=== PATIENT | male | born 1935 | race Caucasian/White ===

== ENCOUNTER 2017-05-12 09:59 | Inpatient (IN) | payer MEDICARE, BC ==
[2017-05-12] MEDS ORDERED: Furosemide 40 MG/4 ML VIAL IVPUSH ONE (11:10)
[2017-05-12] MEDS ORDERED: Albuterol/Ipratropium 3.0-0.5 MG/3 ML Neb Soln NEB PRN (11:16)
--- NOTE | 2017-05-12 12:16 | PCM.HP ---
H&P History of Present Illness - General Date of Service: 05/12/17 Admit Problem/Dx: Admission Diagnosis/Problem Admission Diagnosis/Problem Pneumonia Source of Information: Patient History Limitations: Reports: No Limitations - History of Present Illness Symptom Onset Date: 05/09/17 Duration of Symptoms: Reports: Day(s): Location: Reports: Chest Improves with: Reports: Rest Worsens with: Reports: Movement Associated Symptoms: Reports: Cough, Shortness of Breath - Related Data Allergies/Adverse Reactions: Allergies Allergy/AdvReac Type Severity Reaction Status Date / Time lisinopril Allergy Unknown Cough Verified 10/13/14 11:42 blueberry Allergy unknown Verified 10/13/14 11:42 gentamicin Allergy unknown Verified 10/13/14 11:42 rabeprazole sodium Allergy unknown Verified 10/13/14 11:42 [From Aciphex] raspberry Allergy unknown Verified 10/13/14 11:42 Sulfa (Sulfonamide Allergy Itching Verified 10/13/14 11:42 Antibiotics) Home Medications: Home Meds Aspirin [Carlene Chewable Aspirin] 81 mg PO BEDTIME 06/30/14 [History] Clopidogrel [Plavix] 75 mg PO DAILY 06/30/14 [History] Ibuprofen 400 mg PO BID 06/30/14 [History] Losartan Potassium [Cozaar] 50 mg PO BID 06/30/14 [History] Metoprolol Tartrate 50 mg PO BID 06/30/14 [History] metFORMIN [Glucophage] 500 mg PO DAILY 06/30/14 [History] traMADol [Ultram] 50 mg PO TID PRN 06/30/14 [History] Omeprazole 1 cap PO DAILY 10/12/14 [History] Albuterol Sulfate [Proair Respiclick] 2 puff INH Q6HR PRN 05/12/17 [History] Docusate Sodium [Colace] 100 mg PO BID 05/12/17 [History] Furosemide [Lasix] 20 mg PO DAILY 05/12/17 [History] Psyllium with Sucrose [Metamucil] 1 gm PO DAILY 05/12/17 [History] Rosuvastatin [Crestor] 5 mg PO [id number]@199905/12/17 [History] Past Medical History HEENT History: Reports: Impaired Vision (wears glasses) Cardiovascular History: Reports: CAD, Heart Failure, Hypertension, 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) Gastrointestinal History: Reports: Diverticulosis, GERD - Past Surgical History HEENT Surgical History: Reports: Cataract Surgery (bilat) Cardiovascular Surgical History: Reports: Carotid Stents, Pacer GI Surgical History: Reports: Cholecystectomy Other GI Surgeries/Procedures: recurrent abd pain Social & Family History - Tobacco Use Smoking Status *Q: Current Every Day Smoker Years of Tobacco use: 60 Second Hand Smoke Exposure: No - Alcohol Use Days Per Week of Alcohol Use: 0 (no previous DWI, etc.) Number of Drinks Per Day: 1 (usually one beer every 2 months) Total Drinks Per Week: 0 - Recreational Drug Use Recreational Drug Use: No Drug Use in Last 12 Months: Yes Recreational Drug Type: Reports: Other (see below) (chronic Ultram use) Recreational Drug Use Frequency: Daily - Living Situation & Occupation Living situation: Reports: Occupation: Retired H&P Review of Systems - Review of Systems: Review Of Systems: ROS reveals no pertinent complaints other than HPI. Exam - Exam Exam: See Below - Exam Quality Assessment: Supplemental Oxygen (applied at clinic for O2 sat 88 %) General: Alert, Oriented, Mild Distress (respirations audibly moist, a little wheezy and labored) HEENT: EOMI, Hearing Intact Neck: Supple, Trachea Midline Lungs: Crackles, Wheezing, Other (some increased work of breathing) Cardiovascular: Regular Rate (paced), Regular Rhythm GI/Abdominal Exam: Normal Bowel Sounds, Soft, Non-Tender, No Distention (Male) Exam: Deferred Rectal (Males) Exam: Deferred Back Exam: Normal Inspection Extremities: No Pedal Edema Skin: Warm, Dry, Intact Neuro Extensive - Mental Status: Alert, Oriented x3, Normal Mood/Affect, Normal Cognition, Memory Intact Psychiatric: Alert, Normal Affect, Normal Mood *Q Meaningful Use (ADM) - VTE *Q VTE Criteria *Q: - Stroke *Q Stroke Criteria *Q: - AMI *Q AMI Criteria *Q: - Problem List (1) Pneumonia SNOMED Code(s): 541028741 ICD Code: J18.9 - PNEUMONIA, UNSPECIFIED ORGANISM Status: Acute Priority : High Current Visit: Yes Qualifiers: Pneumonia type: due to unspecified organism Laterality: bilateral (2) Heart failure SNOMED Code(s): 10831234 ICD Code: I50.9 - HEART FAILURE, UNSPECIFIED Status: Chronic Priority: High Current Visit: Yes Qualifiers: Heart failure type: unspecified Heart failure chronicity: acute on chronic Qualified Code(s): I50.9 - Heart failure, unspecified (3) Hypoxia SNOMED Code(s): 901341664 ICD Code: R09.02 - HYPOXEMIA Status: Acute Priority: High Current Visit : Yes Problem List Initiated/Reviewed/Updated: Yes Orders Last 24hrs: Active Orders 24 hr Category Date Time Status Patient Status [ADT] Routine ADT 05/12/17 11:06 Active Accu Check [Blood Glucose Check, Bedside] [RC] TIDMEALS Care 05/12/17 11:38 Active Ambulate [RC] PER UNIT ROUTINE Care 05/12/17 11:08 Active Antiembolic Devices [RC] PER UNIT ROUTINE Care 05/12/17 11:09 Active Height and Weight [RC] DAILY Care 05/12/17 11:06 Active Intake and Output [RC] QSHIFT Care 05/12/17 11:08 Active May Shower [RC] ASDIRECTED Care 05/12/17 11:06 Active Oxygen Therapy [RC] PRN Care 05/12/17 11:06 Active Pulse Oximetry [RC] PRN Care 05/12/17 11:08 Active RT Aerosol Therapy [RC] ASDIRECTED Care 05/12/17 11:17 Active RT Aerosol Therapy [RC] ASDIRECTED Care 05/12/17 11:17 Active Up ad Soumya [RC] ASDIRECTED Care 05/12/17 11:06 Active VTE/DVT Education [RC] PER UNIT ROUTINE Care 05/12/17 11:06 Active Vital Signs [RC] Q4H Care 05/12/17 11:06 Active PT Evaluation and Treatment [CONS] Routine Cons 05/12/17 11:06 Active [place] [employer] Diet [DIET] Diet 05/12/17 Lunch Active Chest 2V [CR] Routine Exams 05/12/17 09:55 Taken Chest 2V [CR] Routine Exams 05/15/17 07:00 Ordered C-REACTIVE PROTEIN [CHEM] AM Lab 05/13/17 05:11 Ordered C-REACTIVE PROTEIN [CHEM] AM Lab 05/14/17 05:11 Ordered C-REACTIVE PROTEIN [CHEM] AM Lab 05/15/17 05:11 Ordered CBC WITH AUTO DIFF [HEME] AM Lab 05/13/17 05:11 Ordered CBC WITH AUTO DIFF [HEME] AM Lab 05/14/17 05:11 Ordered CBC WITH AUTO DIFF [HEME] AM Lab 05/15/17 05:11 Ordered COMPREHENSIVE METABOLIC PN,CMP [CHEM] AM Lab 05/13/17 05:11 Ordered COMPREHENSIVE METABOLIC PN,CMP [CHEM] AM Lab 05/14/17 05:11 Ordered COMPREHENSIVE METABOLIC PN,CMP [CHEM] AM Lab 05/15/17 05:11 Ordered CULTURE BLOOD [BC] Stat Lab 05/12/17 11:18 Received CULTURE BLOOD [BC] Stat Lab 05/12/17 11:18 Received PRO B-TYPE NATRIUR PEPT,BNPPRO [CHEM] DAILY Lab 05/13/17 05:11 Ordered PRO B-TYPE NATRIUR PEPT,BNPPRO [CHEM] DAILY Lab 05/14/17 05:11 Ordered PRO B-TYPE NATRIUR PEPT,BNPPRO [CHEM] DAILY Lab 05/15/17 05:11 Ordered Albuterol/Ipratropium [DuoNeb 3.0-0.5 MG/3 ML] Med 05/12/17 11:16 Active 3 ml NEB Q4HRRT PRN Albuterol/Ipratropium [DuoNeb 3.0-0.5 MG/3 ML] Med 05/12/17 12:00 Active 3 ml NEB QIDRT Aspirin Med 05/12/17 20:00 Active 81 mg PO BEDTIME Azithromycin [Zithromax] 500 mg Med 05/12/17 12:00 Active Sodium Chloride 0.9% [Normal Saline] 250 ml IV Q24H Clopidogrel [Plavix] Med 05/13/17 08:00 Active 75 mg PO DAILY Docusate Sodium [Colace] Med 05/12/17 18:00 Active 100 mg PO BID Furosemide [Lasix] Med 05/13/17 08:00 Active 40 mg IVPUSH DAILY Losartan [Cozaar] Med 05/12/17 18:00 Active 50 mg PO BID Metoprolol Tartrate [Lopressor] Med 05/12/17 18:00 Active 50 mg PO BID Omeprazole Med 05/13/17 08:00 Active 20 mg PO DAILY Psyllium Husk/Aspartame [Metamucil Sugar Free] Med 05/13/17 08:00 Active 1 pkt PO DAILY Rosuvastatin [Crestor] Med 05/12/17 20:00 Active 5 mg PO MoWeFr@2000 Sodium Chloride 0.9% [Saline Flush] Med 05/12/17 11:06 Active 10 ml FLUSH ASDIRECTED PRN cefTAZidime [Fortaz] Med 05/12/17 12:00 Active 1 gm IVPUSH Q8H metFORMIN [Glucophage] Med 05/13/17 08:00 Active 500 mg PO DAILY Antiembolic Hose [OM.PC] Per Unit Routine Oth 05/12/17 11:08 Ordered Blood Culture x2 Reflex Set [OM.PC] Stat Oth 05/12/17 11:06 Ordered Saline Lock Insert [OM.PC] Routine Oth 05/12/17 11:06 Ordered Resuscitation Status Routine Resus Stat 05/12/17 11:06 Ordered Medication Orders Albuterol/Ipratropium (Duoneb 3.0-0.5 Mg/3 Ml) 3 ml NEB Q4HRRT PRN PRN Reason: Dyspnea Albuterol/Ipratropium (Duoneb 3.0-0.5 Mg/3 Ml) 3 ml NEB QIDRT [facility] Aspirin (Aspirin) 81 mg PO BEDTIME [facility] Ceftazidime (Fortaz) 1 gm IVPUSH Q8H [facility] Clopidogrel Bisulfate (Plavix) 75 mg PO DAILY [facility] Docusate Sodium (Colace) 100 mg PO BID [facility] Furosemide (Lasix) 40 mg IVPUSH DAILY [facility] Azithromycin 500 mg/ Sodium (Chloride) 250 mls @ 250 mls/hr IV Q24H [facility] Losartan Potassium (Cozaar) 50 mg PO BID [facility] Metformin HCl (Glucophage) 500 mg PO DAILY [facility] Metoprolol Tartrate (Lopressor) 50 mg PO BID [facility] Omeprazole (Omeprazole) 20 mg PO DAILY [facility] Psyllium Husk (Metamucil Sugar Free) 1 pkt PO DAILY [facility] Rosuvastatin Calcium (Crestor) 5 mg PO [id number]@2000 [facility] Sodium Chloride (Saline Flush) 10 ml FLUSH ASDIRECTED PRN PRN Reason: Keep Vein Open Assessment/Plan Comment:: 05-12-17 Ailyn Joseph PA-C Patient admitted to status under the medical management of Dr. Kelly, who was consulted within 30 minutes of admit. Oxygen saturation came up to 94-95% with O2 at 2 L/m per NC. He had prior to O2 appeared acutely dyspneic with ambulation to the clinic room, and even with extended conversation. He is given a one-time dose of IV Lasix 40 mg on admit, then 40 mg QAM. Duo- neb treatment ordered routinely plus prn. IV Fortaz and Zithromax ordered. This 82 year-old gentleman with co-morbidities will require at least 96 hours of IP care.
[2017-05-12] MEDS: Albuterol/Ipratropium 3.0-0.5 MG/3 ML Neb Soln NEB SCH ×3 (12:39→21:04)
[2017-05-12] MEDS: cefTAZidime 1 GM Vial IVPUSH SCH ×2 (12:39→21:05)
[2017-05-12] MEDS: Azithromycin 500 MG in Sodium Chloride 0.9% 250 ML IV SCH (12:40)
[2017-05-12] MEDS: Sodium Chloride 0.9% 10 ML Syringe FLUSH PRN ×4 (12:43→21:10)
[2017-05-12] MEDS: Metoprolol Tartrate 50 MG Tab PO SCH (17:38)
[2017-05-12] MEDS: Docusate Sodium 100 MG Cap PO SCH (17:38)
[2017-05-12] MEDS: Losartan 50 MG Tab PO SCH (17:38)
[2017-05-12] MEDS ORDERED: Ibuprofen 200 MG Tab PO PRN (20:00)
[2017-05-12] MEDS: Psyllium Husk Powder Sugar Free 5.85 GM Packet PO SCH (21:04)
[2017-05-12] MEDS: Rosuvastatin 10 MG Tab PO SCH (21:05)
[2017-05-12] MEDS: Aspirin 81 MG Tab.Chew PO SCH (21:05)
[2017-05-12] MEDS ORDERED: traMADol 50 MG Tab PO ONE (21:58)
[2017-05-13] MEDS: Sodium Chloride 0.9% 10 ML Syringe FLUSH PRN ×5 (05:11→20:35)
[2017-05-13] MEDS: cefTAZidime 1 GM Vial IVPUSH SCH ×3 (05:11→20:10)
[2017-05-13] MEDS: Furosemide 40 MG/4 ML VIAL IVPUSH SCH (07:22)
[2017-05-13] MEDS: Albuterol/Ipratropium 3.0-0.5 MG/3 ML Neb Soln NEB SCH ×4 (07:22→20:10)
[2017-05-13] MEDS: Psyllium Husk Powder Sugar Free 5.85 GM Packet PO SCH ×2 (07:22→20:09)
[2017-05-13] MEDS: Metoprolol Tartrate 50 MG Tab PO SCH ×2 (07:22→17:56)
[2017-05-13] MEDS: Docusate Sodium 100 MG Cap PO SCH ×2 (07:23→17:55)
[2017-05-13] MEDS: Losartan 50 MG Tab PO SCH ×2 (07:23→17:55)
[2017-05-13] MEDS: Clopidogrel 75 MG Tab PO SCH (07:23)
[2017-05-13] MEDS: metFORMIN 500 MG Tab PO SCH (07:23)
[2017-05-13 07:55] LABS: CHLORIDE,CL 98 mmol/L (98-107); SODIUM,NA 137 mmol/L (136-145)
[2017-05-13] MEDS ORDERED: Psyllium Husk Powder Sugar Free 5.85 GM Packet PO SCH (08:00)
[2017-05-13] MEDS ORDERED: Omeprazole 20 MG Cap.CR PO SCH (08:00)
[2017-05-13] MEDS: Azithromycin 500 MG in Sodium Chloride 0.9% 250 ML IV SCH (11:46)
[2017-05-13] MEDS ORDERED: Albuterol 0.083% 2.5 MG/3 ML Neb Soln NEB PRN (19:57)
--- NOTE | 2017-05-13 20:07 | PCM.PN ---
- General Info Date of Service: 05/13/17 Admission Dx/Problem (Free Text): Admission Diagnosis/Problem Admission Diagnosis/Problem Pneumonia Functional Status: Reports: Pain Controlled - Review of Systems General: Reports: Weakness HEENT: Reports: No Symptoms Pulmonary: Reports: Shortness of Breath, Cough, Wheezing Cardiovascular: Reports: No Symptoms Gastrointestinal: Reports: No Symptoms Genitourinary: Reports: No Symptoms Musculoskeletal: Reports: No Symptoms Skin: Reports: No Symptoms Neurological: Reports: Weakness Psychiatric: Reports: No Symptoms - Patient Data Vitals - Most Recent: Last Vital Signs Temp 97.7 F 05/13/17 18:29 Pulse 87 05/13/17 18:29 Resp 24 H 05/13/17 18:29 BP 136/80 05/13/17 18:29 Pulse Ox 93 L 05/13/17 18:29 Weight - Most Recent: 228 lb 11.2 oz I&O - Last 24 Hours: Intake & Output 05/13/17 05/13/17 05/13/17 06:59 14:59 22:59 Intake Total 400 1290 600 Output Total 200 250 Balance 400 1090 350 Lab Results Last 24 Hours: Laboratory Results - last 24 hr 05/13/17 05/13/17 05/13/17 Range/Units 07:19 07:24 07:24 WBC 7.8 (4.0-10.2) K/uL RBC 4.83 (4.33-5.41) M/uL Hgb 15.5 (13.1-16.8) g/dL Hct 47.1 (39.0-49.0) % MCV 97.5 (84.0-98.0) fL MCH 32.1 (28.2-33.3) pg MCHC 32.9 (31.7-36.0) g/dL RDW 13.6 (11.2-14.1) % Plt Count 138 L (150-350) K/uL Neut % (Auto) 66.2 (45.0-80.0) % Lymph % (Auto) 18.7 (10.0-50.0) % [place] % (Auto) 11.9 (2.0-14.0) % Eos % (Auto) 2.8 (0.0-5.0) % Baso % (Auto) 0.4 (0.0-2.0) % Neut # (Auto) 5.14 (1.40-7.00) K/uL Lymph # (Auto) 1.45 (0.50-3.50) K/uL [place] # (Auto) 0.92 (0.00-1.00) K/uL Eos # (Auto) 0.22 (0.00-0.50) K/uL Baso # (Auto) 0.03 (0.00-0.20) K/uL Sodium 137 (136-145) mmol/L Potassium 3.9 (3.5-5.1) mmol/L Chloride 98 (98-107) mmol/L Carbon Dioxide 32.8 H (21.0-32.0) mmol/L BUN 22 H (7-18) mg/dL Creatinine 0.98 (0.51-1.17) mg/dL Est Cr Clr Drug Dosing 54.53 mL/min Estimated GFR (MDRD) > 60 mL/min Glucose 117 H (74-106) mg/dL POC Glucose 111 H (65-110) mg/dl Calcium 8.8 (8.5-10.1) mg/dL Total Bilirubin 0.9 (0.2-1.0) mg/dL AST 21 (15-37) U/L ALT 18 (12-78) U/L Alkaline Phosphatase 104 (46-116) IU/L C-Reactive Protein 2.1 H (<=0.9) mg/dL NT-Pro-B Natriuret Pep 1429 H (0-125) pg/mL Total Protein 7.7 (6.4-8.2) g/dL Albumin 3.7 (3.4-5.0) g/dL 05/13/17 05/13/17 Range/Units 11:41 17:17 WBC (4.0-10.2) K/uL RBC (4.33-5.41) M/uL Hgb (13.1-16.8) g/dL Hct (39.0-49.0) % MCV (84.0-98.0) fL MCH (28.2-33.3) pg MCHC (31.7-36.0) g/dL RDW (11.2-14.1) % Plt Count (150-350) K/uL Neut % (Auto) (45.0-80.0) % Lymph % (Auto) (10.0-50.0) % [place] % (Auto) (2.0-14.0) % Eos % (Auto) (0.0-5.0) % Baso % (Auto) (0.0-2.0) % Neut # (Auto) (1.40-7.00) K/uL Lymph # (Auto) (0.50-3.50) K/uL [place] # (Auto) (0.00-1.00) K/uL Eos # (Auto) (0.00-0.50) K/uL Baso # (Auto) (0.00-0.20) K/uL Sodium (136-145) mmol/L Potassium (3.5-5.1) mmol/L Chloride (98-107) mmol/L Carbon Dioxide (21.0-32.0) mmol/L BUN (7-18) mg/dL Creatinine (0.51-1.17) mg/dL Est Cr Clr Drug Dosing mL/min Estimated GFR (MDRD) mL/min Glucose (74-106) mg/dL POC Glucose 98 109 (65-110) mg/dl Calcium (8.5-10.1) mg/dL Total Bilirubin (0.2-1.0) mg/dL AST (15-37) U/L ALT (12-78) U/L Alkaline Phosphatase (46-116) IU/L C-Reactive Protein (<=0.9) mg/dL NT-Pro-B Natriuret Pep (0-125) pg/mL Total Protein (6.4-8.2) g/dL Albumin (3.4-5.0) g/dL [place] Results Last 24 Hours: Microbiology 05/12/17 11:18 Aerobic Blood Culture - Preliminary Blood - Venous - Lab Draw NO GROWTH AFTER 1 DAY Anaerobic Blood Culture - Preliminary NO GROWTH AFTER 1 DAY 05/12/17 11:18 Aerobic Blood Culture - Preliminary Blood - Venous NO GROWTH AFTER 1 DAY Anaerobic Blood Culture - Preliminary NO GROWTH AFTER 1 DAY Med Orders - Current: Current Medications Albuterol (Proventil Neb Soln) 2.5 mg NEB Q2H PRN PRN Reason: Wheezing Albuterol/Ipratropium (Duoneb 3.0-0.5 Mg/3 Ml) 3 ml NEB Q4HRRT PRN PRN Reason: Dyspnea Last Admin: 05/12/17 23:28 Dose: 3 ml Albuterol/Ipratropium (Duoneb 3.0-0.5 Mg/3 Ml) 3 ml NEB QIDRT [facility] Last Admin: 05/13/17 15:06 Dose: 3 ml Aspirin (Aspirin) 81 mg PO BEDTIME [facility] Last Admin: 05/12/17 21:05 Dose: 81 mg Ceftazidime (Fortaz) 1 gm IVPUSH Q8H [facility] Last Admin: 05/13/17 11:46 Dose: 1 gm Clopidogrel Bisulfate (Plavix) 75 mg PO DAILY [facility] Last Admin: 05/13/17 07:23 Dose: 75 mg Docusate Sodium (Colace) 100 mg PO BID [facility] Last Admin: 05/13/17 17:55 Dose: 100 mg Furosemide (Lasix) 40 mg IVPUSH DAILY [facility] Last Admin: 05/13/17 07:22 Dose: 40 mg Azithromycin 500 mg/ Sodium (Chloride) 250 mls @ 250 mls/hr IV Q24H [facility] Last Admin: 05/13/17 11:46 Dose: 250 mls/hr Aminophylline 500 mg/ Sodium (Chloride) 120 mls @ 200 mls/hr IV ONETIME ONE Stop: 05/13/17 20:25 Aminophylline 500 mg/ Sodium (Chloride) 520 mls @ 33 mls/hr IV ASDIRECTED [facility] Ibuprofen (Motrin) 400 mg PO BID@08,20 PRN PRN Reason: Pain Last Admin: 05/12/17 21:04 Dose: 400 mg Losartan Potassium (Cozaar) 50 mg PO BID [facility] Last Admin: 05/13/17 17:55 Dose: 50 mg Metformin HCl (Glucophage) 500 mg PO DAILY [facility] Last Admin: 05/13/17 07:23 Dose: 500 mg Methylprednisolone Sodium Succinate (Solu-Medrol) 40 mg IVPUSH Q12HR [facility] Metoprolol Tartrate (Lopressor) 50 mg PO BID [facility] Last Admin: 05/13/17 17:56 Dose: 50 mg Omeprazole (Omeprazole) 20 mg PO BEDTIME [facility] Psyllium Husk (Metamucil Sugar Free) 1 pkt PO BID@08,20 [facility] Last Admin: 05/13/17 07:22 Dose: 1 pkt Rosuvastatin Calcium (Crestor) 5 mg PO MoWeFr@1999 [facility] Last Admin: 05/12/17 21:05 Dose: 5 mg Sodium Chloride (Saline Flush) 10 ml FLUSH ASDIRECTED PRN PRN Reason: Keep Vein Open Last Admin: 05/13/17 13:29 Dose: 10 ml Sodium Chloride (Saline Flush) 10 ml FLUSH Q12HR [facility] Discontinued Medications Furosemide (Lasix) 40 mg IVPUSH NOW ONE Stop: 05/12/17 11:11 Last Admin: 05/12/17 12:39 Dose: 40 mg Omeprazole (Omeprazole) 20 mg PO DAILY [facility] Last Admin: 05/13/17 07:23 Dose: 20 mg Psyllium Husk (Metamucil Sugar Free) 1 pkt PO DAILY [facility] Tramadol HCl (Ultram) 50 mg PO ONETIME ONE Stop: 05/12/17 21:59 Last Admin: 05/12/17 22:20 Dose: 50 mg - Exam Quality Assessment: Supplemental Oxygen General: Alert, Cooperative, Mild Distress HEENT: Mucous Membr. Moist/Wet [place] Neck: Trachea Midline, No JVD Lungs: Normal Respiratory Effort, Decreased Breath Sounds, Rhonchi, Wheezing Cardiovascular: Regular Rate, Regular Rhythm GI/Abdominal Exam: Soft, Non-Tender, No Distention (Male) Exam: Deferred Back Exam: Normal Inspection Extremities: Normal Inspection, Non-Tender, No Pedal Edema Skin: Warm, Dry, Intact Neurological: No New Focal Deficit Psy/Mental Status: Alert, Normal Affect, Normal Mood - Problem List & Annotations (1) Hypoxia SNOMED Code(s): 998867829 Code(s): R09.02 - HYPOXEMIA Status: Acute Priority: High Current Visit : Yes (2) Pneumonia SNOMED Code(s): 872391696 Code(s): J18.9 - PNEUMONIA, UNSPECIFIED ORGANISM Status: Acute Priority: High Current Visit: Yes Qualifiers: Pneumonia type: due to unspecified organism Laterality: bilateral (3) Heart failure SNOMED Code(s): 72811570 Code(s): I50.9 - HEART FAILURE, UNSPECIFIED Status: Chronic Priority: High Current Visit: Yes Qualifiers: Heart failure type: unspecified Heart failure chronicity: acute on chronic Qualified Code(s): I50.9 - Heart failure, unspecified (4) Diabetes mellitus SNOMED Code(s): 46079723 Code(s): E11.9 - TYPE 2 DIABETES MELLITUS WITHOUT COMPLICATIONS Status: Acute Priority: Medium Current Visit: No Annotation/Comment:: Blood sugars under good control by patient history with compliance with diet encouraged secondary to his current obesity (5) Heart disease SNOMED Code(s): 81118271 Code(s): I51.9 - HEART DISEASE, UNSPECIFIED Status: Acute Priority: Medium Current Visit: No Annotation/Comment:: No chest pain or anginal complaints. Continue to observe closely for his regular provider. He is not a candidate for an MRI secondary to his current pacemaker. (6) Hypertension SNOMED Code(s): 72144906 Code(s): I10 - ESSENTIAL (PRIMARY) HYPERTENSION Status: Acute Priority: Medium Current Visit: No Annotation/Comment:: Blood pressure is under good control during this evaluation (7) Osteoarthritis SNOMED Code(s): 006101960 Code(s): M19.90 - UNSPECIFIED OSTEOARTHRITIS, UNSPECIFIED SITE Status: Acute Priority: High Current Visit: No Annotation/Comment:: Chronic low back pain with mild exacerbation today. Treatment and followup as per discharge instructions. Patient was cautioned to use Ultram with discretion especially with new Flexeril therapy. No acute injury with patient apparently having completed physical therapy in this facility about one month ago. (8) Peptic reflux disease SNOMED Code(s): 04720592 Code(s): K21.9 - GASTRO-ESOPHAGEAL REFLUX DISEASE WITHOUT ESOPHAGITIS Status: Acute Priority: Medium Current Visit: No Annotation/Comment:: Previously treated H. pylori infection as above. No current symptoms with regular ibuprofen usage. Once again no true abdominal pain today, however note that patient has not yet had a screening colonoscopy, which was recommended to be discussed with his regular provider today (9) Tobacco use SNOMED Code(s): 614409722 Code(s): Z72.0 - TOBACCO USE Status: Acute Priority: Medium Current Visit: No Annotation/Comment:: Tobacco cessation strongly encouraged with information provided at discharge - Problem List Review Problem List Initiated/Reviewed/Updated: Yes - My Orders Last 24 Hours: My Active Orders 05/13/17 19:50 Aminophylline 500 mg Sodium Chloride 0.9% [Normal Saline] 100 ml IV ONETIME 05/13/17 19:57 RT Aerosol Therapy [RC] ASDIRECTED Albuterol [Proventil Neb Soln] 2.5 mg NEB Q2H PRN 05/13/17 20:00 Sodium Chloride 0.9% [Saline Flush] 10 ml FLUSH Q12HR methylPREDNISolone Sod Succ [Solu-MEDROL] 40 mg IVPUSH Q12HR 05/13/17 21:00 Aminophylline 500 mg Sodium Chloride 0.9% [Normal Saline] 500 ml IV ASDIRECTED 05/14/17 05:11 THEOPHYLLINE [CHEM] Routine - Plan Plan:: 05-12-17 Ailyn Joseph PA-C Patient admitted to IP status under the medical management of Dr. Kelly, who was consulted within 30 minutes of admit. Oxygen saturation came up to 94-95% with O2 at 2 L/m per NC. He had prior to O2 appeared acutely dyspneic with ambulation to the clinic room, and even with extended conversation. He is given a one-time dose of IV Lasix 40 mg on admit, then 40 mg QAM. Duo- neb treatment ordered routinely plus prn. IV Fortaz and Zithromax ordered. This 82 year-old gentleman with co-morbidities will require at least 96 hours of IP care. 05/13/17 Leticia Rodriguez MD Still short of breath. Still wheezing. Cough is tight and nonproductive.
[2017-05-13] MEDS: Aspirin 81 MG Tab.Chew PO SCH (20:09)
[2017-05-13] MEDS: Sodium Chloride 0.9% 10 ML Syringe FLUSH SCH (20:15)
[2017-05-13] MEDS: methylPREDNISolone Sodium Succinate 40 MG/1 ML SDV IVPUSH SCH (20:33)
[2017-05-13] MEDS: Aminophylline 500 MG in Sodium Chloride 0.9% 500 ML IV SCH (21:18)
[2017-05-14] MEDS: Docusate Sodium 100 MG Cap PO SCH ×2 (07:40→17:48)
[2017-05-14] MEDS: metFORMIN 500 MG Tab PO SCH (07:41)
[2017-05-14] MEDS: Metoprolol Tartrate 50 MG Tab PO SCH ×2 (07:41→17:49)
[2017-05-14] MEDS: Clopidogrel 75 MG Tab PO SCH (07:41)
[2017-05-14] MEDS: Losartan 50 MG Tab PO SCH ×2 (07:41→17:48)
[2017-05-14] MEDS: Sodium Chloride 0.9% 10 ML Syringe FLUSH SCH ×2 (07:42→19:56)
[2017-05-14] MEDS: methylPREDNISolone Sodium Succinate 40 MG/1 ML SDV IVPUSH SCH ×2 (07:42→19:56)
[2017-05-14] MEDS: Psyllium Husk Powder Sugar Free 5.85 GM Packet PO SCH ×2 (07:42→19:54)
[2017-05-14] MEDS: cefTAZidime 1 GM Vial IVPUSH SCH ×2 (07:44→19:56)
[2017-05-14] MEDS: Furosemide 40 MG/4 ML VIAL IVPUSH SCH (07:45)
[2017-05-14] MEDS: Albuterol/Ipratropium 3.0-0.5 MG/3 ML Neb Soln NEB SCH ×4 (07:46→19:57)
[2017-05-14] MEDS: Sodium Chloride 0.9% 10 ML Syringe FLUSH PRN (07:49)
[2017-05-14 08:14] LABS: CHLORIDE,CL 101 mmol/L (98-107); SODIUM,NA 141 mmol/L (136-145)
[2017-05-14] MEDS: Azithromycin 500 MG in Sodium Chloride 0.9% 250 ML IV SCH (11:14)
[2017-05-14] MEDS: Aminophylline 500 MG in Sodium Chloride 0.9% 500 ML IV SCH (14:40)
[2017-05-14] MEDS: Omeprazole 20 MG Cap.CR PO SCH (19:54)
[2017-05-14] MEDS: Rosuvastatin 10 MG Tab PO SCH (19:54)
[2017-05-14] MEDS: Aspirin 81 MG Tab.Chew PO SCH (19:54)
--- NOTE | 2017-05-14 21:37 | PCM.PN ---
- General Info Date of Service: 05/14/17 Admission Dx/Problem (Free Text): Admission Diagnosis/Problem Admission Diagnosis/Problem Pneumonia Functional Status: Reports: Tolerating Diet, Ambulating - Review of Systems General: Reports: No Symptoms HEENT: Reports: No Symptoms Pulmonary: Reports: Shortness of Breath (improving), Cough Cardiovascular: Reports: No Symptoms Gastrointestinal: Reports: No Symptoms Genitourinary: Reports: No Symptoms Musculoskeletal: Reports: No Symptoms Skin: Reports: No Symptoms Neurological: Reports: No Symptoms Psychiatric: Reports: No Symptoms - Patient Data Vitals - Most Recent: Last Vital Signs Temp 97.5 F 05/14/17 15:50 Pulse 66 05/14/17 17:49 Resp 23 H 05/14/17 15:50 BP 115/54 L 05/14/17 17:49 Pulse Ox 94 L 05/14/17 15:50 Weight - Most Recent: 229 lb 3.2 oz I&O - Last 24 Hours: Intake & Output 05/14/17 05/14/17 05/14/17 06:59 14:59 22:59 Intake Total 850 1376 Output Total 400 1175 250 Balance -400 -325 1126 Lab Results Last 24 Hours: Laboratory Results - last 24 hr 05/14/17 05/14/17 05/14/17 Range/Units 07:18 07:18 11:16 WBC 7.9 (4.0-10.2) K/uL RBC 4.80 (4.33-5.41) M/uL Hgb 15.3 (13.1-16.8) g/dL Hct 46.2 (39.0-49.0) % MCV 96.3 (84.0-98.0) fL MCH 31.9 (28.2-33.3) pg MCHC 33.1 (31.7-36.0) g/dL RDW 13.1 (11.2-14.1) % Plt Count 142 L (150-350) K/uL Neut % (Auto) 81.5 H (45.0-80.0) % Lymph % (Auto) 14.2 (10.0-50.0) % [place] % (Auto) 4.2 (2.0-14.0) % Eos % (Auto) 0.0 (0.0-5.0) % Baso % (Auto) 0.1 (0.0-2.0) % Neut # (Auto) 6.46 (1.40-7.00) K/uL Lymph # (Auto) 1.13 (0.50-3.50) K/uL [place] # (Auto) 0.33 (0.00-1.00) K/uL Eos # (Auto) 0.00 (0.00-0.50) K/uL Baso # (Auto) 0.01 (0.00-0.20) K/uL Sodium 141 (136-145) mmol/L Potassium 4.5 (3.5-5.1) mmol/L Chloride 101 (98-107) mmol/L Carbon Dioxide 33.4 H (21.0-32.0) mmol/L BUN 24 H (7-18) mg/dL Creatinine 0.93 (0.51-1.17) mg/dL Est Cr Clr Drug Dosing 57.46 mL/min Estimated GFR (MDRD) > 60 mL/min Glucose 141 H (74-106) mg/dL POC Glucose 142 H (65-110) mg/dl Calcium 9.0 (8.5-10.1) mg/dL Total Bilirubin 0.6 (0.2-1.0) mg/dL AST 21 (15-37) U/L ALT 19 (12-78) U/L Alkaline Phosphatase 98 (46-116) IU/L C-Reactive Protein 2.0 H (<=0.9) mg/dL NT-Pro-B Natriuret Pep 1393 H (0-125) pg/mL Total Protein 7.4 (6.4-8.2) g/dL Albumin 3.3 L (3.4-5.0) g/dL Theophylline 12 (10-20) ug/dL 05/14/17 Range/Units 16:20 WBC (4.0-10.2) K/uL RBC (4.33-5.41) M/uL Hgb (13.1-16.8) g/dL Hct (39.0-49.0) % MCV (84.0-98.0) fL MCH (28.2-33.3) pg MCHC (31.7-36.0) g/dL RDW (11.2-14.1) % Plt Count (150-350) K/uL Neut % (Auto) (45.0-80.0) % Lymph % (Auto) (10.0-50.0) % [place] % (Auto) (2.0-14.0) % Eos % (Auto) (0.0-5.0) % Baso % (Auto) (0.0-2.0) % Neut # (Auto) (1.40-7.00) K/uL Lymph # (Auto) (0.50-3.50) K/uL [place] # (Auto) (0.00-1.00) K/uL Eos # (Auto) (0.00-0.50) K/uL Baso # (Auto) (0.00-0.20) K/uL Sodium (136-145) mmol/L Potassium (3.5-5.1) mmol/L Chloride (98-107) mmol/L Carbon Dioxide (21.0-32.0) mmol/L BUN (7-18) mg/dL Creatinine (0.51-1.17) mg/dL Est Cr Clr Drug Dosing mL/min Estimated GFR (MDRD) mL/min Glucose (74-106) mg/dL POC Glucose 144 H (65-110) mg/dl Calcium (8.5-10.1) mg/dL Total Bilirubin (0.2-1.0) mg/dL AST (15-37) U/L ALT (12-78) U/L Alkaline Phosphatase (46-116) IU/L C-Reactive Protein (<=0.9) mg/dL NT-Pro-B Natriuret Pep (0-125) pg/mL Total Protein (6.4-8.2) g/dL Albumin (3.4-5.0) g/dL Theophylline (10-20) ug/dL [facility] Results Last 24 Hours: Microbiology 05/12/17 11:18 Aerobic Blood Culture - Preliminary Blood - Venous - Lab Draw NO GROWTH AFTER 2 DAYS Anaerobic Blood Culture - Preliminary NO GROWTH AFTER 2 DAYS 05/12/17 11:18 Aerobic Blood Culture - Preliminary Blood - Venous NO GROWTH AFTER 2 DAYS Anaerobic Blood Culture - Preliminary NO GROWTH AFTER 2 DAYS Med Orders - Current: Current Medications Albuterol (Proventil Neb Soln) 2.5 mg NEB Q2H PRN PRN Reason: Wheezing Last Admin: 05/14/17 18:07 Dose: 2.5 mg Albuterol/Ipratropium (Duoneb 3.0-0.5 Mg/3 Ml) 3 ml NEB Q4HRRT PRN PRN Reason: Dyspnea Last Admin: 05/12/17 23:28 Dose: 3 ml Albuterol/Ipratropium (Duoneb 3.0-0.5 Mg/3 Ml) 3 ml NEB QIDRT [facility] Last Admin: 05/14/17 19:57 Dose: 3 ml Aspirin (Aspirin) 81 mg PO BEDTIME [facility] Last Admin: 05/14/17 19:54 Dose: 81 mg Azithromycin (Zithromax) 500 mg PO DAILY [facility] Ceftazidime (Fortaz) 1 gm IVPUSH Q12HR [facility] Last Admin: 05/14/17 19:56 Dose: 1 gm Clopidogrel Bisulfate (Plavix) 75 mg PO DAILY [facility] Last Admin: 05/14/17 07:41 Dose: 75 mg Docusate Sodium (Colace) 100 mg PO BID [facility] Last Admin: 05/14/17 17:48 Dose: 100 mg Furosemide (Lasix) 40 mg IVPUSH DAILY [facility] Last Admin: 05/14/17 07:45 Dose: 40 mg Aminophylline 500 mg/ Sodium (Chloride) 520 mls @ 33 mls/hr IV ASDIRECTED [facility] Last Admin: 05/14/17 14:40 Dose: 33 mls/hr Ibuprofen (Motrin) 400 mg PO BID@08,20 PRN PRN Reason: Pain Last Admin: 05/12/17 21:04 Dose: 400 mg Losartan Potassium (Cozaar) 50 mg PO BID [facility] Last Admin: 05/14/17 17:48 Dose: 50 mg Metformin HCl (Glucophage) 500 mg PO DAILY [facility] Last Admin: 05/14/17 07:41 Dose: 500 mg Methylprednisolone Sodium Succinate (Solu-Medrol) 40 mg IVPUSH Q12HR [facility] Last Admin: 05/14/17 19:56 Dose: 40 mg Metoprolol Tartrate (Lopressor) 50 mg PO BID [facility] Last Admin: 05/14/17 17:49 Dose: 50 mg Omeprazole (Omeprazole) 20 mg PO BEDTIME [facility] Last Admin: 05/14/17 19:54 Dose: 20 mg Psyllium Husk (Metamucil Sugar Free) 1 pkt PO BID@08,20 [facility] Last Admin: 05/14/17 19:54 Dose: 1 pkt Rosuvastatin Calcium (Crestor) 5 mg PO [email or web address] [facility] Last Admin: 05/14/17 19:54 Dose: 5 mg Sodium Chloride (Saline Flush) 10 ml FLUSH ASDIRECTED PRN PRN Reason: Keep Vein Open Last Admin: 05/14/17 07:49 Dose: 10 ml Sodium Chloride (Saline Flush) 10 ml FLUSH Q12HR [facility] Last Admin: 05/14/17 19:56 Dose: 10 ml Discontinued Medications Ceftazidime (Fortaz) 1 gm IVPUSH Q8H [facility] Last Admin: 05/13/17 20:10 Dose: 1 gm Furosemide (Lasix) 40 mg IVPUSH NOW ONE Stop: 05/12/17 11:11 Last Admin: 05/12/17 12:39 Dose: 40 mg Azithromycin 500 mg/ Sodium (Chloride) 250 mls @ 250 mls/hr IV Q24H [facility] Last Admin: 05/14/17 11:14 Dose: 250 mls/hr Aminophylline 500 mg/ Sodium (Chloride) 120 mls @ 200 mls/hr IV ONETIME ONE Stop: 05/13/17 20:25 Last Admin: 05/13/17 20:32 Dose: 200 mls/hr Omeprazole (Omeprazole) 20 mg PO DAILY [facility] Last Admin: 05/13/17 07:23 Dose: 20 mg Psyllium Husk (Metamucil Sugar Free) 1 pkt PO DAILY [facility] Tramadol HCl (Ultram) 50 mg PO ONETIME ONE Stop: 05/12/17 21:59 Last Admin: 05/12/17 22:20 Dose: 50 mg - Exam Quality Assessment: Supplemental Oxygen General: Alert, Cooperative, No Acute Distress HEENT: Mucous Membr. Moist/[place] Neck: Trachea Midline, No JVD Lungs: Normal Respiratory Effort, Decreased Breath Sounds, Rhonchi, Wheezing Cardiovascular: Regular Rate, Regular Rhythm GI/Abdominal Exam: Soft, Non-Tender (Male) Exam: Deferred Back Exam: Normal Inspection Extremities: Normal Inspection, Non-Tender, No Pedal Edema Skin: Warm, Dry, Intact Neurological: No New Focal Deficit Psy/Mental Status: Alert, Normal Affect, Normal Mood - Problem List & Annotations (1) Hypoxia SNOMED Code(s): 101600064 Code(s): R09.02 - HYPOXEMIA Status: Acute Priority: High Current Visit : Yes (2) Pneumonia SNOMED Code(s): 319407226 Code(s): J18.9 - PNEUMONIA, UNSPECIFIED ORGANISM Status: Acute Priority: High Current Visit: Yes Qualifiers: Pneumonia type: due to unspecified organism Laterality: bilateral (3) Heart failure SNOMED Code(s): 12890432 Code(s): I50.9 - HEART FAILURE, UNSPECIFIED Status: Chronic Priority: High Current Visit: Yes Qualifiers: Heart failure type: unspecified Heart failure chronicity: acute on chronic Qualified Code(s): I50.9 - Heart failure, unspecified (4) Diabetes mellitus SNOMED Code(s): 97920821 Code(s): E11.9 - TYPE 2 DIABETES MELLITUS WITHOUT COMPLICATIONS Status: Acute Priority: Medium Current Visit: No Annotation/Comment:: Blood sugars under good control by patient history with compliance with diet encouraged secondary to his current obesity (5) Heart disease SNOMED Code(s): 60376612 Code(s): I51.9 - HEART DISEASE, UNSPECIFIED Status: Acute Priority: Medium Current Visit: No Annotation/Comment:: No chest pain or anginal complaints. Continue to observe closely for his regular provider. He is not a candidate for an MRI secondary to his current pacemaker. (6) Hypertension SNOMED Code(s): 27594652 Code(s): I10 - ESSENTIAL (PRIMARY) HYPERTENSION Status: Acute Priority: Medium Current Visit: No Annotation/Comment:: Blood pressure is under good control during this evaluation (7) Osteoarthritis SNOMED Code(s): 158702653 Code(s): M19.90 - UNSPECIFIED OSTEOARTHRITIS, UNSPECIFIED SITE Status: Acute Priority: High Current Visit: No Annotation/Comment:: Chronic low back pain with mild exacerbation today. Treatment and followup as per discharge instructions. Patient was cautioned to use Ultram with discretion especially with new Flexeril therapy. No acute injury with patient apparently having completed physical therapy in this facility about one month ago. (8) Peptic reflux disease SNOMED Code(s): 64504079 Code(s): K21.9 - GASTRO-ESOPHAGEAL REFLUX DISEASE WITHOUT ESOPHAGITIS Status: Acute Priority: Medium Current Visit: No Annotation/Comment:: Previously treated H. pylori infection as above. No current symptoms with regular ibuprofen usage. Once again no true abdominal pain today, however note that patient has not yet had a screening colonoscopy, which was recommended to be discussed with his regular provider today (9) Tobacco use SNOMED Code(s): 410731107 Code(s): Z72.0 - TOBACCO USE Status: Acute Priority: Medium Current Visit: No Annotation/Comment:: Tobacco cessation strongly encouraged with information provided at discharge - Problem List Review Problem List Initiated/Reviewed/Updated: Yes - My Orders Last 24 Hours: My Active Orders 05/13/17 21:00 Aminophylline 500 mg Sodium Chloride 0.9% [Normal Saline] 500 ml IV ASDIRECTED 05/14/17 08:00 cefTAZidime [Fortaz] 1 gm IVPUSH Q12HR 05/15/17 05:11 BLOOD GAS VENOUS [BG] Routine 05/15/17 08:00 Azithromycin [Zithromax] 500 mg PO DAILY - Plan Plan:: 05-12-17 Ailyn Joseph PA-C Patient admitted to IP status under the medical management of Dr. Kelly, who was consulted within 30 minutes of admit. Oxygen saturation came up to 94-95% with O2 at 2 L/m per NC. He had prior to O2 appeared acutely dyspneic with ambulation to the clinic room, and even with extended conversation. He is given a one-time dose of IV Lasix 40 mg on admit, then 40 mg QAM. Duo- neb treatment ordered routinely plus prn. IV Fortaz and Zithromax ordered. This 82 year-old gentleman with co-morbidities will require at least 96 hours of IP care. 05/13/17 Leticia Rodriguez MD Still short of breath. Still wheezing. Cough is tight and nonproductive. 05/14/17 Leticia Rodriguez MD Starting to feel better. Less short of breath. Still cough. Still some wheezing but improved.
[2017-05-15 07:02] LABS: O2 DELIVERY DEVICE NASAL CANNULA
[2017-05-15 07:33] LABS: CHLORIDE,CL 101 mmol/L (98-107); SODIUM,NA 140 mmol/L (136-145)
[2017-05-15] MEDS: methylPREDNISolone Sodium Succinate 40 MG/1 ML SDV IVPUSH SCH ×2 (08:02→19:19)
[2017-05-15] MEDS: Aminophylline 500 MG in Sodium Chloride 0.9% 500 ML IV SCH (08:02)
[2017-05-15 08:16] LABS: O2 SATURATION VENOUS 82 %; PCO2 VENOUS 62 mmHG (41-51); PH,VENOUS 7.31 (7.31-7.41); PO2 VENOUS 52 mmHG
[2017-05-15 08:17] LABS: BASE EXCESS VENOUS 5 mmol/L ((-2)-3); BICARBONATE,VENOUS 31 mmol/L (23-28)
[2017-05-15] MEDS: Albuterol/Ipratropium 3.0-0.5 MG/3 ML Neb Soln NEB SCH ×4 (08:17→19:17)
[2017-05-15] MEDS: Sodium Chloride 0.9% 10 ML Syringe FLUSH SCH ×2 (08:17→19:19)
[2017-05-15] MEDS: Furosemide 40 MG/4 ML VIAL IVPUSH SCH (08:19)
[2017-05-15] MEDS: cefTAZidime 1 GM Vial IVPUSH SCH ×2 (08:19→19:16)
[2017-05-15] MEDS: Losartan 50 MG Tab PO SCH ×2 (08:19→19:17)
[2017-05-15] MEDS: Docusate Sodium 100 MG Cap PO SCH ×2 (08:19→19:18)
[2017-05-15] MEDS: Metoprolol Tartrate 50 MG Tab PO SCH ×2 (08:19→19:16)
[2017-05-15] MEDS: Psyllium Husk Powder Sugar Free 5.85 GM Packet PO SCH ×2 (08:19→19:18)
[2017-05-15] MEDS: Azithromycin 250 MG Tab PO SCH (08:23)
[2017-05-15] MEDS: metFORMIN 500 MG Tab PO SCH (08:23)
[2017-05-15] MEDS: Clopidogrel 75 MG Tab PO SCH (08:24)
[2017-05-15] MEDS: Omeprazole 20 MG Cap.CR PO SCH (19:17)
[2017-05-15] MEDS: Aspirin 81 MG Tab.Chew PO SCH (19:19)
--- NOTE | 2017-05-15 23:02 | PCM.PN ---
- General Info Date of Service: 05/15/17 Admission Dx/Problem (Free Text): Admission Diagnosis/Problem Admission Diagnosis/Problem Pneumonia Functional Status: Reports: Tolerating Diet, Ambulating - Review of Systems General: Reports: No Symptoms HEENT: Reports: No Symptoms Pulmonary: Reports: Shortness of Breath, Cough, Wheezing Cardiovascular: Reports: No Symptoms Gastrointestinal: Reports: No Symptoms Genitourinary: Reports: No Symptoms Musculoskeletal: Reports: No Symptoms Skin: Reports: No Symptoms Neurological: Reports: No Symptoms Psychiatric: Reports: No Symptoms - Patient Data Vitals - Most Recent: Last Vital Signs Temp 97.8 F 05/15/17 20:00 Pulse 61 05/15/17 20:00 Resp 20 05/15/17 20:00 BP 154/80 H 05/15/17 20:00 Pulse Ox 95 05/15/17 20:00 Weight - Most Recent: 228 lb 12.8 oz I&O - Last 24 Hours: Intake & Output 05/15/17 05/15/17 05/15/17 06:59 14:59 22:59 Intake Total 100 480 390 Output Total 200 1300 100 Balance -100 -820 290 Lab Results Last 24 Hours: Laboratory Results - last 24 hr 05/15/17 05/15/17 05/15/17 Range/Units 06:40 06:40 06:40 WBC 13.5 H (4.0-10.2) K/uL RBC 4.91 (4.33-5.41) M/uL Hgb 16.0 (13.1-16.8) g/dL Hct 47.2 (39.0-49.0) % MCV 96.1 (84.0-98.0) fL MCH 32.6 (28.2-33.3) pg MCHC 33.9 (31.7-36.0) g/dL RDW 13.1 (11.2-14.1) % Plt Count 169 (150-350) K/uL Neut % (Auto) 83.5 H (45.0-80.0) % Lymph % (Auto) 11.6 (10.0-50.0) % [place] % (Auto) 4.7 (2.0-14.0) % Eos % (Auto) 0.1 (0.0-5.0) % Baso % (Auto) 0.1 (0.0-2.0) % Neut # (Auto) 11.28 H (1.40-7.00) K/uL Lymph # (Auto) 1.56 (0.50-3.50) K/uL [place] # (Auto) 0.63 (0.00-1.00) K/uL Eos # (Auto) 0.01 (0.00-0.50) K/uL Baso # (Auto) 0.02 (0.00-0.20) K/uL VBG pH 7.31 (7.31-7.41) VBG pCO2 62 H (41-51) mmHG VBG pO2 52 mmHG VBG HCO3 31 H (23-28) mmol/L VBG Total CO2 33 mmol/L VBG O2 Saturation 82 % VBG Base Excess 5 H ((-2)-3) mmol/L O2 Delivery Device Nasal cannula Sodium 140 (136-145) mmol/L Potassium 4.1 (3.5-5.1) mmol/L Chloride 101 (98-107) mmol/L Carbon Dioxide 31.8 (21.0-32.0) mmol/L BUN 35 H (7-18) mg/dL Creatinine 1.08 (0.51-1.17) mg/dL Est Cr Clr Drug Dosing 49.48 mL/min Estimated GFR (MDRD) > 60 mL/min Glucose 138 H (74-106) mg/dL POC Glucose (65-110) mg/dl Calcium 9.4 (8.5-10.1) mg/dL Total Bilirubin 0.6 (0.2-1.0) mg/dL AST 27 (15-37) U/L ALT 21 (12-78) U/L Alkaline Phosphatase 99 (46-116) IU/L C-Reactive Protein 1.0 H (<=0.9) mg/dL NT-Pro-B Natriuret Pep 1752 H (0-125) pg/mL Total Protein 7.6 (6.4-8.2) g/dL Albumin 3.5 (3.4-5.0) g/dL Theophylline 14 (10-20) ug/dL 05/15/17 05/15/17 Range/Units 07:33 11:01 WBC (4.0-10.2) K/uL RBC (4.33-5.41) M/uL Hgb (13.1-16.8) g/dL Hct (39.0-49.0) % MCV (84.0-98.0) fL MCH (28.2-33.3) pg MCHC (31.7-36.0) g/dL RDW (11.2-14.1) % Plt Count (150-350) K/uL Neut % (Auto) (45.0-80.0) % Lymph % (Auto) (10.0-50.0) % [place] % (Auto) (2.0-14.0) % Eos % (Auto) (0.0-5.0) % Baso % (Auto) (0.0-2.0) % Neut # (Auto) (1.40-7.00) K/uL Lymph # (Auto) (0.50-3.50) K/uL [place] # (Auto) (0.00-1.00) K/uL Eos # (Auto) (0.00-0.50) K/uL Baso # (Auto) (0.00-0.20) K/uL VBG pH (7.31-7.41) VBG pCO2 (41-51) mmHG VBG pO2 mmHG VBG HCO3 (23-28) mmol/L VBG Total CO2 mmol/L VBG O2 Saturation % VBG Base Excess ((-2)-3) mmol/L O2 Delivery Device Sodium (136-145) mmol/L Potassium (3.5-5.1) mmol/L Chloride (98-107) mmol/L Carbon Dioxide (21.0-32.0) mmol/L BUN (7-18) mg/dL Creatinine (0.51-1.17) mg/dL Est Cr Clr Drug Dosing mL/min Estimated GFR (MDRD) mL/min Glucose (74-106) mg/dL POC Glucose 122 H 174 H (65-110) mg/dl Calcium (8.5-10.1) mg/dL Total Bilirubin (0.2-1.0) mg/dL AST (15-37) U/L ALT (12-78) U/L Alkaline Phosphatase (46-116) IU/L C-Reactive Protein (<=0.9) mg/dL NT-Pro-B Natriuret Pep (0-125) pg/mL Total Protein (6.4-8.2) g/dL Albumin (3.4-5.0) g/dL Theophylline (10-20) ug/dL [place] Results Last 24 Hours: Microbiology 05/12/17 11:18 Aerobic Blood Culture - Preliminary Blood - Venous - Lab Draw NO GROWTH AFTER 3 DAYS Anaerobic Blood Culture - Preliminary NO GROWTH AFTER 3 DAYS 05/12/17 11:18 Aerobic Blood Culture - Preliminary Blood - Venous NO GROWTH AFTER 3 DAYS Anaerobic Blood Culture - Preliminary NO GROWTH AFTER 3 DAYS 05/12/17 07:24 Mycoplasma Serology - Final Blood Med Orders - Current: Current Medications Albuterol (Proventil Neb Soln) 2.5 mg NEB Q2H PRN PRN Reason: Wheezing Last Admin: 05/14/17 18:07 Dose: 2.5 mg Albuterol/Ipratropium (Duoneb 3.0-0.5 Mg/3 Ml) 3 ml NEB Q4HRRT PRN PRN Reason: Dyspnea Last Admin: 05/12/17 23:28 Dose: 3 ml Albuterol/Ipratropium (Duoneb 3.0-0.5 Mg/3 Ml) 3 ml NEB QIDRT [facility] Last Admin: 05/15/17 19:17 Dose: 3 ml Aspirin (Aspirin) 81 mg PO BEDTIME [facility] Last Admin: 05/15/17 19:19 Dose: 81 mg Azithromycin (Zithromax) 500 mg PO DAILY [facility] Last Admin: 05/15/17 08:23 Dose: 500 mg Ceftazidime (Fortaz) 1 gm IVPUSH Q12HR [facility] Last Admin: 05/15/17 19:16 Dose: 1 gm Clopidogrel Bisulfate (Plavix) 75 mg PO DAILY [facility] Last Admin: 05/15/17 08:24 Dose: 75 mg Docusate Sodium (Colace) 100 mg PO BID [facility] Last Admin: 05/15/17 19:18 Dose: 100 mg Furosemide (Lasix) 40 mg IVPUSH DAILY [facility] Last Admin: 05/15/17 08:19 Dose: 40 mg Aminophylline 500 mg/ Sodium (Chloride) 520 mls @ 33 mls/hr IV ASDIRECTED [facility] Stop: 05/15/17 23:00 Last Admin: 05/15/17 08:02 Dose: 33 mls/hr Ibuprofen (Motrin) 400 mg PO BID@08,20 PRN PRN Reason: Pain Last Admin: 05/12/17 21:04 Dose: 400 mg Losartan Potassium (Cozaar) 50 mg PO BID [facility] Last Admin: 05/15/17 19:17 Dose: 50 mg Metformin HCl (Glucophage) 500 mg PO DAILY [facility] Last Admin: 05/15/17 08:23 Dose: 500 mg Methylprednisolone Sodium Succinate (Solu-Medrol) 40 mg IVPUSH Q12HR [facility] Last Admin: 05/15/17 19:19 Dose: 40 mg Metoprolol Tartrate (Lopressor) 50 mg PO BID [facility] Last Admin: 05/15/17 19:16 Dose: 50 mg Omeprazole (Omeprazole) 20 mg PO BEDTIME [facility] Last Admin: 05/15/17 19:17 Dose: 20 mg Psyllium Husk (Metamucil Sugar Free) 1 pkt PO BID@08,20 [facility] Last Admin: 05/15/17 19:18 Dose: 1 pkt Rosuvastatin Calcium (Crestor) 5 mg PO [email or web address] [facility] Last Admin: 05/14/17 19:54 Dose: 5 mg Sodium Chloride (Saline Flush) 10 ml FLUSH ASDIRECTED PRN PRN Reason: Keep Vein Open Last Admin: 05/14/17 07:49 Dose: 10 ml Sodium Chloride (Saline Flush) 10 ml FLUSH Q12HR [facility] Last Admin: 05/15/17 19:19 Dose: 10 ml Theophylline (Theophylline Anhydrous) 300 mg PO Q12HR [facility] Discontinued Medications Ceftazidime (Fortaz) 1 gm IVPUSH Q8H [facility] Last Admin: 05/13/17 20:10 Dose: 1 gm Furosemide (Lasix) 40 mg IVPUSH NOW ONE Stop: 05/12/17 11:11 Last Admin: 05/12/17 12:39 Dose: 40 mg Azithromycin 500 mg/ Sodium (Chloride) 250 mls @ 250 mls/hr IV Q24H [facility] Last Admin: 05/14/17 11:14 Dose: 250 mls/hr Aminophylline 500 mg/ Sodium (Chloride) 120 mls @ 200 mls/hr IV ONETIME ONE Stop: 05/13/17 20:25 Last Admin: 05/13/17 20:32 Dose: 200 mls/hr Omeprazole (Omeprazole) 20 mg PO DAILY [facility] Last Admin: 05/13/17 07:23 Dose: 20 mg Psyllium Husk (Metamucil Sugar Free) 1 pkt PO DAILY [facility] Tramadol HCl (Ultram) 50 mg PO ONETIME ONE Stop: 05/12/17 21:59 Last Admin: 05/12/17 22:20 Dose: 50 mg - Exam General: Alert, Cooperative HEENT: Mucous Membr. Moist/[place] Neck: Trachea Midline, No JVD Lungs: Normal Respiratory Effort, Decreased Breath Sounds, Rhonchi, Wheezing Cardiovascular: Regular Rate, Regular Rhythm, Other (pacemaker) GI/Abdominal Exam: Soft, Non-Tender, No Distention (Male) Exam: Deferred Back Exam: Normal Inspection Extremities: Normal Inspection, Non-Tender, No Pedal Edema Skin: Warm, Dry, Intact Neurological: No New Focal Deficit Psy/Mental Status: Alert, Normal Affect, Normal Mood - Problem List & Annotations (1) Hypoxia SNOMED Code(s): 164685262 Code(s): R09.02 - HYPOXEMIA Status: Acute Priority: High Current Visit : Yes (2) Pneumonia SNOMED Code(s): 879821544 Code(s): J18.9 - PNEUMONIA, UNSPECIFIED ORGANISM Status: Acute Priority: High Current Visit: Yes Qualifiers: Pneumonia type: due to unspecified organism Laterality: bilateral (3) Heart failure SNOMED Code(s): 53017909 Code(s): I50.9 - HEART FAILURE, UNSPECIFIED Status: Chronic Priority: High Current Visit: Yes Qualifiers: Heart failure type: unspecified Heart failure chronicity: acute on chronic Qualified Code(s): I50.9 - Heart failure, unspecified (4) Diabetes mellitus SNOMED Code(s): 60595785 Code(s): E11.9 - TYPE 2 DIABETES MELLITUS WITHOUT COMPLICATIONS Status: Acute Priority: Medium Current Visit: No Annotation/Comment:: Blood sugars under good control by patient history with compliance with diet encouraged secondary to his current obesity (5) Heart disease SNOMED Code(s): 97631081 Code(s): I51.9 - HEART DISEASE, UNSPECIFIED Status: Acute Priority: Medium Current Visit: No Annotation/Comment:: No chest pain or anginal complaints. Continue to observe closely for his regular provider. He is not a candidate for an MRI secondary to his current pacemaker. (6) Hypertension SNOMED Code(s): 30772498 Code(s): I10 - ESSENTIAL (PRIMARY) HYPERTENSION Status: Acute Priority: Medium Current Visit: No Annotation/Comment:: Blood pressure is under good control during this evaluation (7) Osteoarthritis SNOMED Code(s): 743904190 Code(s): M19.90 - UNSPECIFIED OSTEOARTHRITIS, UNSPECIFIED SITE Status: Acute Priority: High Current Visit: No Annotation/Comment:: Chronic low back pain with mild exacerbation today. Treatment and followup as per discharge instructions. Patient was cautioned to use Ultram with discretion especially with new Flexeril therapy. No acute injury with patient apparently having completed physical therapy in this facility about one month ago. (8) Peptic reflux disease SNOMED Code(s): 89816727 Code(s): K21.9 - GASTRO-ESOPHAGEAL REFLUX DISEASE WITHOUT ESOPHAGITIS Status: Acute Priority: Medium Current Visit: No Annotation/Comment:: Previously treated H. pylori infection as above. No current symptoms with regular ibuprofen usage. Once again no true abdominal pain today, however note that patient has not yet had a screening colonoscopy, which was recommended to be discussed with his regular provider today (9) Tobacco use SNOMED Code(s): 725506886 Code(s): Z72.0 - TOBACCO USE Status: Acute Priority: Medium Current Visit: No Annotation/Comment:: Tobacco cessation strongly encouraged with information provided at discharge - Problem List Review Problem List Initiated/Reviewed/Updated: Yes - My Orders Last 24 Hours: My Active Orders 05/15/17 08:00 Azithromycin [Zithromax] 500 mg PO DAILY 05/16/17 05:11 CBC WITH AUTO DIFF [HEME] Routine CMP [COMPREHENSIVE METABOLIC PN,CMP] [CHEM] Routine PRO B-TYPE NATRIUR PEPT,BNPPRO [CHEM] Routine THEOPHYLLINE [CHEM] Routine 05/16/17 08:00 Theophylline [Theophylline Anhydrous] 300 mg PO Q12HR - Plan Plan:: 05-12-17 Ailyn Joseph PA-C Patient admitted to status under the medical management of Dr. Kelly, who was consulted within 30 minutes of admit. Oxygen saturation came up to 94-95% with O2 at 2 L/m per NC. He had prior to O2 appeared acutely dyspneic with ambulation to the clinic room, and even with extended conversation. He is given a one-time dose of IV Lasix 40 mg on admit, then 40 mg QAM. Duo- neb treatment ordered routinely plus prn. IV Fortaz and Zithromax ordered. This 82 year-old gentleman with co-morbidities will require at least 96 hours of IP care. 05/13/17 Leticia Rodriguez MD Still short of breath. Still wheezing. Cough is tight and nonproductive. 05/14/17 Leticia Rodriguez MD Starting to feel better. Less short of breath. Still cough. Still some wheezing but improved. 05/15/17 Leticia Rodriguez MD Breathing still not normal but improved from admission. Will change IV aminophyline to PO theophylline. Continue antibiotics.
[2017-05-16] MEDS: Metoprolol Tartrate 50 MG Tab PO SCH ×2 (07:37→17:52)
[2017-05-16] MEDS: Albuterol/Ipratropium 3.0-0.5 MG/3 ML Neb Soln NEB SCH ×3 (07:37→16:50)
[2017-05-16] MEDS: Clopidogrel 75 MG Tab PO SCH (07:37)
[2017-05-16] MEDS: Azithromycin 250 MG Tab PO SCH (07:38)
[2017-05-16] MEDS: Losartan 50 MG Tab PO SCH ×2 (07:38→17:51)
[2017-05-16] MEDS: metFORMIN 500 MG Tab PO SCH (07:38)
[2017-05-16] MEDS: Docusate Sodium 100 MG Cap PO SCH ×2 (07:38→17:51)
[2017-05-16] MEDS: methylPREDNISolone Sodium Succinate 40 MG/1 ML SDV IVPUSH SCH (07:39)
[2017-05-16] MEDS: Furosemide 40 MG/4 ML VIAL IVPUSH SCH (07:39)
[2017-05-16] MEDS: cefTAZidime 1 GM Vial IVPUSH SCH (07:40)
[2017-05-16] MEDS: Sodium Chloride 0.9% 10 ML Syringe FLUSH SCH (07:40)
[2017-05-16] MEDS: Psyllium Husk Powder Sugar Free 5.85 GM Packet PO SCH (07:40)
[2017-05-16 07:53] LABS: CHLORIDE,CL 103 mmol/L (98-107); SODIUM,NA 140 mmol/L (136-145)
[2017-05-16] MEDS ORDERED: Theophylline 300 MG Tab.ER PO SCH (08:00)
[2017-05-16 16:04] VITALS: BP 136/44
--- NOTE | 2017-05-16 17:41 | PCM.PN ---
- General Info Date of Service: 05/16/17 Admission Dx/Problem (Free Text): Admission Diagnosis/Problem Admission Diagnosis/Problem Pneumonia Functional Status: Reports: Pain Controlled - Review of Systems General: Reports: No Symptoms HEENT: Reports: No Symptoms Pulmonary: Reports: Cough, Wheezing Cardiovascular: Reports: No Symptoms Gastrointestinal: Reports: No Symptoms Genitourinary: Reports: No Symptoms Musculoskeletal: Reports: No Symptoms Skin: Reports: No Symptoms Neurological: Reports: No Symptoms Psychiatric: Reports: No Symptoms - Patient Data Vitals - Most Recent: Last Vital Signs Temp 97.6 F 05/16/17 16:00 Pulse 74 05/16/17 16:00 Resp 20 05/16/17 12:00 BP 136/44 L 05/16/17 16:00 Pulse Ox 94 L 05/16/17 16:00 Weight - Most Recent: 226 lb 3.2 oz I&O - Last 24 Hours: Intake & Output 05/16/17 05/16/17 05/16/17 06:59 14:59 22:59 Intake Total 830 960 280 Output Total 1200 Balance 830 -240 280 Lab Results Last 24 Hours: Laboratory Results - last 24 hr 05/15/17 05/16/17 05/16/17 Range/Units 17:06 06:45 06:45 WBC 14.9 H (4.0-10.2) K/uL RBC 4.72 (4.33-5.41) M/uL Hgb 15.1 (13.1-16.8) g/dL Hct 45.5 (39.0-49.0) % MCV 96.4 (84.0-98.0) fL MCH 32.0 (28.2-33.3) pg MCHC 33.2 (31.7-36.0) g/dL RDW 13.3 (11.2-14.1) % Plt Count 187 (150-350) K/uL Neut % (Auto) 81.5 H (45.0-80.0) % Lymph % (Auto) 13.1 (10.0-50.0) % [place] % (Auto) 5.2 (2.0-14.0) % Eos % (Auto) 0.1 (0.0-5.0) % Baso % (Auto) 0.1 (0.0-2.0) % Neut # (Auto) 12.15 H (1.40-7.00) K/uL Lymph # (Auto) 1.96 (0.50-3.50) K/uL [place] # (Auto) 0.77 (0.00-1.00) K/uL Eos # (Auto) 0.01 (0.00-0.50) K/uL Baso # (Auto) 0.02 (0.00-0.20) K/uL Sodium 140 (136-145) mmol/L Potassium 4.4 (3.5-5.1) mmol/L Chloride 103 (98-107) mmol/L Carbon Dioxide 31.6 (21.0-32.0) mmol/L BUN 39 H (7-18) mg/dL Creatinine 1.09 (0.51-1.17) mg/dL Est Cr Clr Drug Dosing 49.02 mL/min Estimated GFR (MDRD) > 60 mL/min Glucose 120 H (74-106) mg/dL POC Glucose 148 H (65-110) mg/dl Calcium 9.5 (8.5-10.1) mg/dL Total Bilirubin 0.6 (0.2-1.0) mg/dL AST 35 (15-37) U/L ALT 31 (12-78) U/L Alkaline Phosphatase 90 (46-116) IU/L NT-Pro-B Natriuret Pep 2483 H (0-125) pg/mL Total Protein 7.3 (6.4-8.2) g/dL Albumin 3.4 (3.4-5.0) g/dL Theophylline 8 L (10-20) ug/dL 05/16/17 05/16/17 05/16/17 Range/Units 07:21 10:49 17:24 WBC (4.0-10.2) K/uL RBC (4.33-5.41) M/uL Hgb (13.1-16.8) g/dL Hct (39.0-49.0) % MCV (84.0-98.0) fL MCH (28.2-33.3) pg MCHC (31.7-36.0) g/dL RDW (11.2-14.1) % Plt Count (150-350) K/uL Neut % (Auto) (45.0-80.0) % Lymph % (Auto) (10.0-50.0) % [place] % (Auto) (2.0-14.0) % Eos % (Auto) (0.0-5.0) % Baso % (Auto) (0.0-2.0) % Neut # (Auto) (1.40-7.00) K/uL Lymph # (Auto) (0.50-3.50) K/uL [place] # (Auto) (0.00-1.00) K/uL Eos # (Auto) (0.00-0.50) K/uL Baso # (Auto) (0.00-0.20) K/uL Sodium (136-145) mmol/L Potassium (3.5-5.1) mmol/L Chloride (98-107) mmol/L Carbon Dioxide (21.0-32.0) mmol/L BUN (7-18) mg/dL Creatinine (0.51-1.17) mg/dL Est Cr Clr Drug Dosing mL/min Estimated GFR (MDRD) mL/min Glucose (74-106) mg/dL POC Glucose 105 150 H 156 H (65-110) mg/dl Calcium (8.5-10.1) mg/dL Total Bilirubin (0.2-1.0) mg/dL AST (15-37) U/L ALT (12-78) U/L Alkaline Phosphatase (46-116) IU/L NT-Pro-B Natriuret Pep (0-125) pg/mL Total Protein (6.4-8.2) g/dL Albumin (3.4-5.0) g/dL Theophylline (10-20) ug/dL Korey Results Last 24 Hours: Microbiology 05/12/17 11:18 Aerobic Blood Culture - Preliminary Blood - Venous - Lab Draw NO GROWTH AFTER 4 DAYS Anaerobic Blood Culture - Preliminary NO GROWTH AFTER 4 DAYS 05/12/17 11:18 Aerobic Blood Culture - Preliminary Blood - Venous NO GROWTH AFTER 4 DAYS Anaerobic Blood Culture - Preliminary NO GROWTH AFTER 4 DAYS Med Orders - Current: Current Medications Albuterol (Proventil Neb Soln) 2.5 mg NEB Q2H PRN PRN Reason: Wheezing Last Admin: 05/14/17 18:07 Dose: 2.5 mg Albuterol/Ipratropium (Duoneb 3.0-0.5 Mg/3 Ml) 3 ml NEB Q4HRRT PRN PRN Reason: Dyspnea Last Admin: 05/12/17 23:28 Dose: 3 ml Albuterol/Ipratropium (Duoneb 3.0-0.5 Mg/3 Ml) 3 ml NEB QIDRT [facility] Last Admin: 05/16/17 16:50 Dose: 3 ml Aspirin (Aspirin) 81 mg PO BEDTIME [facility] Last Admin: 05/15/17 19:19 Dose: 81 mg Azithromycin (Zithromax) 500 mg PO DAILY [facility] Last Admin: 05/16/17 07:38 Dose: 500 mg Ceftazidime (Fortaz) 1 gm IVPUSH Q12HR [facility] Last Admin: 05/16/17 07:40 Dose: 1 gm Clopidogrel Bisulfate (Plavix) 75 mg PO DAILY [facility] Last Admin: 05/16/17 07:37 Dose: 75 mg Docusate Sodium (Colace) 100 mg PO BID [facility] Last Admin: 05/16/17 07:38 Dose: 100 mg Furosemide (Lasix) 40 mg IVPUSH DAILY [facility] Last Admin: 05/16/17 07:39 Dose: 40 mg Ibuprofen (Motrin) 400 mg PO BID@08,20 PRN PRN Reason: Pain Last Admin: 05/12/17 21:04 Dose: 400 mg Losartan Potassium (Cozaar) 50 mg PO BID [facility] Last Admin: 05/16/17 07:38 Dose: 50 mg Metformin HCl (Glucophage) 500 mg PO DAILY [facility] Last Admin: 05/16/17 07:38 Dose: 500 mg Methylprednisolone Sodium Succinate (Solu-Medrol) 40 mg IVPUSH Q12HR [facility] Last Admin: 05/16/17 07:39 Dose: 40 mg Metoprolol Tartrate (Lopressor) 50 mg PO BID [facility] Last Admin: 05/16/17 07:37 Dose: 50 mg Omeprazole (Omeprazole) 20 mg PO BEDTIME [facility] Last Admin: 05/15/17 19:17 Dose: 20 mg Psyllium Husk (Metamucil Sugar Free) 1 pkt PO BID@08,20 [facility] Last Admin: 05/16/17 07:40 Dose: 1 pkt Rosuvastatin Calcium (Crestor) 5 mg PO [id number]@[id number] [facility] Last Admin: 05/14/17 19:54 Dose: 5 mg Sodium Chloride (Saline Flush) 10 ml FLUSH ASDIRECTED PRN PRN Reason: Keep Vein Open Last Admin: 05/14/17 07:49 Dose: 10 ml Sodium Chloride (Saline Flush) 10 ml FLUSH Q12HR [facility] Last Admin: 05/16/17 07:40 Dose: 10 ml Theophylline (Theophylline Anhydrous) 300 mg PO Q12HR [facility] Last Admin: 05/16/17 07:38 Dose: 300 mg Discontinued Medications Ceftazidime (Fortaz) 1 gm IVPUSH Q8H [facility] Last Admin: 05/13/17 20:10 Dose: 1 gm Furosemide (Lasix) 40 mg IVPUSH NOW ONE Stop: 05/12/17 11:11 Last Admin: 05/12/17 12:39 Dose: 40 mg Azithromycin 500 mg/ Sodium (Chloride) 250 mls @ 250 mls/hr IV Q24H [facility] Last Admin: 05/14/17 11:14 Dose: 250 mls/hr Aminophylline 500 mg/ Sodium (Chloride) 120 mls @ 200 mls/hr IV ONETIME ONE Stop: 05/13/17 20:25 Last Admin: 05/13/17 20:32 Dose: 200 mls/hr Aminophylline 500 mg/ Sodium (Chloride) 520 mls @ 33 mls/hr IV ASDIRECTED [facility] Stop: 05/15/17 23:00 Last Admin: 05/15/17 08:02 Dose: 33 mls/hr Omeprazole (Omeprazole) 20 mg PO DAILY [facility] Last Admin: 05/13/17 07:23 Dose: 20 mg Psyllium Husk (Metamucil Sugar Free) 1 pkt PO DAILY [facility] Tramadol HCl (Ultram) 50 mg PO ONETIME ONE Stop: 05/12/17 21:59 Last Admin: 05/12/17 22:20 Dose: 50 mg - Exam General: Alert, Cooperative Neck: Trachea Midline, No JVD Lungs: Normal Respiratory Effort, Decreased Breath Sounds, Rhonchi, Wheezing Cardiovascular: Regular Rate, Regular Rhythm GI/Abdominal Exam: Soft, Non-Tender, No Distention (Male) Exam: Deferred Back Exam: Normal Inspection Extremities: Non-Tender, Pedal Edema Skin: Warm, Dry, Intact Neurological: No New Focal Deficit Psy/Mental Status: Alert, Normal Affect, Normal Mood - Problem List & Annotations (1) Hypoxia SNOMED Code(s): 146919751 Code(s): R09.02 - HYPOXEMIA Status: Acute Priority: High Current Visit : Yes (2) Pneumonia SNOMED Code(s): 098851039 Code(s): J18.9 - PNEUMONIA, UNSPECIFIED ORGANISM Status: Acute Priority: High Current Visit: Yes Qualifiers: Pneumonia type: due to unspecified organism Laterality: bilateral (3) Heart failure SNOMED Code(s): 86896003 Code(s): I50.9 - HEART FAILURE, UNSPECIFIED Status: Chronic Priority: High Current Visit: Yes Qualifiers: Heart failure type: unspecified Heart failure chronicity: acute on chronic Qualified Code(s): I50.9 - Heart failure, unspecified (4) Diabetes mellitus SNOMED Code(s): 09645216 Code(s): E11.9 - TYPE 2 DIABETES MELLITUS WITHOUT COMPLICATIONS Status: Acute Priority: Medium Current Visit: No Annotation/Comment:: Blood sugars under good control by patient history with compliance with diet encouraged secondary to his current obesity (5) Heart disease SNOMED Code(s): 08842272 Code(s): I51.9 - HEART DISEASE, UNSPECIFIED Status: Acute Priority: Medium Current Visit: No Annotation/Comment:: No chest pain or anginal complaints. Continue to observe closely for his regular provider. He is not a candidate for an MRI secondary to his current pacemaker. (6) Hypertension SNOMED Code(s): 97985364 Code(s): I10 - ESSENTIAL (PRIMARY) HYPERTENSION Status: Acute Priority: Medium Current Visit: No Annotation/Comment:: Blood pressure is under good control during this evaluation (7) Osteoarthritis SNOMED Code(s): 156294869 Code(s): M19.90 - UNSPECIFIED OSTEOARTHRITIS, UNSPECIFIED SITE Status: Acute Priority: High Current Visit: No Annotation/Comment:: Chronic low back pain with mild exacerbation today. Treatment and followup as per discharge instructions. Patient was cautioned to use Ultram with discretion especially with new Flexeril therapy. No acute injury with patient apparently having completed physical therapy in this facility about one month ago. (8) Peptic reflux disease SNOMED Code(s): 770165710 Code(s): K21.9 - GASTRO-ESOPHAGEAL REFLUX DISEASE WITHOUT ESOPHAGITIS Status: Acute Priority: Medium Current Visit: No Annotation/Comment:: Previously treated H. pylori infection as above. No current symptoms with regular ibuprofen usage. Once again no true abdominal pain today, however note that patient has not yet had a screening colonoscopy, which was recommended to be discussed with his regular provider today (9) Tobacco use SNOMED Code(s): 839525221 Code(s): Z72.0 - TOBACCO USE Status: Acute Priority: Medium Current Visit: No Annotation/Comment:: Tobacco cessation strongly encouraged with information provided at discharge - Problem List Review Problem List Initiated/Reviewed/Updated: Yes - My Orders Last 24 Hours: My Active Orders 05/16/17 08:00 Theophylline [Theophylline Anhydrous] 300 mg PO Q12HR 05/16/17 17:38 Ready for Discharge [RC] PER UNIT ROUTINE - Plan Plan:: 05-12-17 Ailyn Joseph PA-C Patient admitted to IP status under the medical management of Dr. Kelly, who was consulted within 30 minutes of admit. Oxygen saturation came up to 94-95% with O2 at 2 L/m per NC. He had prior to O2 appeared acutely dyspneic with ambulation to the clinic room, and even with extended conversation. He is given a one-time dose of IV Lasix 40 mg on admit, then 40 mg QAM. Duo- neb treatment ordered routinely plus prn. IV Fortaz and Zithromax ordered. This 82 year-old gentleman with co-morbidities will require at least 96 hours of IP care. 05/13/17 Leticia Rodriguez MD Still short of breath. Still wheezing. Cough is tight and nonproductive. 05/14/17 Leticia Rodriguez MD Starting to feel better. Less short of breath. Still cough. Still some wheezing but improved. 05/15/17 Leticia Rodriguez MD Breathing still not normal but improved from admission. Will change IV aminophyline to PO theophylline. Continue antibiotics.
--- NOTE | 2017-05-16 23:37 | PCM.DCSUM1 ---
Discharge Summary - Discharge Data Discharge Date: 05/16/17 Discharge Disposition: DC/Tfer W/I [facility] Condition: Good - Discharge Diagnosis/Problem(s) (1) Hypoxia SNOMED Code(s): 817919372 ICD Code: R09.02 - HYPOXEMIA Status: Acute Priority: High (2) Pneumonia SNOMED Code(s): 809969246 ICD Code: J18.9 - PNEUMONIA, UNSPECIFIED ORGANISM Status: Acute Priority : High Qualifiers: Pneumonia type: due to unspecified organism Laterality: bilateral (3) Heart failure SNOMED Code(s): 62459121 ICD Code: I50.9 - HEART FAILURE, UNSPECIFIED Status: Chronic Priority: High Qualifiers: Heart failure type: unspecified Heart failure chronicity: acute on chronic Qualified Code(s): I50.9 - Heart failure, unspecified (4) Diabetes mellitus SNOMED Code(s): 73626680 ICD Code: E11.9 - TYPE 2 DIABETES MELLITUS WITHOUT COMPLICATIONS Status: Acute Priority: Medium Problem Details: Blood sugars under good control by patient history with compliance with diet encouraged secondary to his current obesity (5) Heart disease SNOMED Code(s): 33579053 ICD Code: I51.9 - HEART DISEASE, UNSPECIFIED Status: Acute Priority: Medium Problem Details: No chest pain or anginal complaints. Continue to observe closely for his regular provider. He is not a candidate for an MRI secondary to his current pacemaker. (6) Hypertension SNOMED Code(s): 05332518 ICD Code: I10 - ESSENTIAL (PRIMARY) HYPERTENSION Status: Acute Priority: Medium Problem Details: Blood pressure is under good control during this evaluation (7) Osteoarthritis SNOMED Code(s): 042192758 ICD Code: M19.90 - UNSPECIFIED OSTEOARTHRITIS, UNSPECIFIED SITE Status: Acute Priority: High Problem Details: Chronic low back pain with mild exacerbation today. Treatment and followup as per discharge instructions. Patient was cautioned to use Ultram with discretion especially with new Flexeril therapy. No acute injury with patient apparently having completed physical therapy in this facility about one month ago. (8) Peptic reflux disease SNOMED Code(s): 952001662 ICD Code: K21.9 - GASTRO-ESOPHAGEAL REFLUX DISEASE WITHOUT ESOPHAGITIS Status: Acute Priority: Medium Problem Details: Previously treated H. pylori infection as above. No current symptoms with regular ibuprofen usage. Once again no true abdominal pain today, however note that patient has not yet had a screening colonoscopy, which was recommended to be discussed with his regular provider today (9) Tobacco use SNOMED Code(s): 993743832 ICD Code: Z72.0 - TOBACCO USE Status: Acute Priority: Medium Problem Details: Tobacco cessation strongly encouraged with information provided at discharge - Patient Summary/Data Consults: Consultations 05/12/17 11:06 PT Evaluation and Treatment [CONS] Routine - Patient Instructions Diet: Diabetic Diet Activity: As Tolerated Driving: Do Not Drive Showering/Bathing: May Shower - Discharge Plan Home Medications: Home Meds Aspirin [Carlene Chewable Aspirin] 81 mg PO BEDTIME 06/30/14 [History] Clopidogrel [Plavix] 75 mg PO DAILY 06/30/14 [History] Ibuprofen 400 mg PO BID 06/30/14 [History] Losartan Potassium [Cozaar] 50 mg PO BID 06/30/14 [History] Metoprolol Tartrate 50 mg PO BID 06/30/14 [History] metFORMIN [Glucophage] 500 mg PO DAILY 06/30/14 [History] traMADol [Ultram] 50 mg PO BID@,06/30/14 [History] Omeprazole 1 cap PO DAILY 10/12/14 [History] Albuterol Sulfate [Proair Respiclick] 2 puff INH Q6HR PRN 05/12/17 [History] Beta-Carotene(A) W-C & E/Min [Vision Vitamins] 2 each PO BID@,05/12/17 [ History] Docusate Sodium [Colace] 100 mg PO BID 05/12/17 [History] Furosemide [Lasix] 20 mg PO DAILY 05/12/17 [History] Ibuprofen 400 mg PO BEDTIME 05/12/17 [History] Ibuprofen 600 mg PO DAILY 05/12/17 [History] Psyllium with Sucrose [Metamucil] 1 gm PO BID 05/12/17 [History] Rosuvastatin [Crestor] 5 mg PO MOWEFR@199905/12/17 [History] traMADol [Ultram] 50 mg PO DAILY PRN 05/12/17 [History] Patient Handouts: Azithromycin for infusion, Ceftazidime injection, Heart Failure, Aminophylline oral tablet, Community-Acquired Pneumonia, Adult, Easy-to -Read - Discharge Summary/Plan Comment DC Time >30 min.: No - Patient Data Vitals - Most Recent: Last Vital Signs Temp 97.6 F 05/16/17 16:00 Pulse 74 05/16/17 17:52 Resp 20 05/16/17 12:00 BP 136/44 L 05/16/17 17:52 Pulse Ox 94 L 05/16/17 16:00 Weight - Most Recent: 226 lb 3.2 oz I&O - Last 24 hours: Intake & Output 05/16/17 05/16/17 05/17/17 14:59 22:59 06:59 Intake Total 960 520 Output Total 1200 Balance -240 520 Lab Results - Last 24 hrs: Laboratory Results - last 24 hr 05/15/17 05/16/17 05/16/17 Range/Units 17:06 06:45 06:45 WBC 14.9 H (4.0-10.2) K/uL RBC 4.72 (4.33-5.41) M/uL Hgb 15.1 (13.1-16.8) g/dL Hct 45.5 (39.0-49.0) % MCV 96.4 (84.0-98.0) fL MCH 32.0 (28.2-33.3) pg MCHC 33.2 (31.7-36.0) g/dL RDW 13.3 (11.2-14.1) % Plt Count 187 (150-350) K/uL Neut % (Auto) 81.5 H (45.0-80.0) % Lymph % (Auto) 13.1 (10.0-50.0) % Oliver % (Auto) 5.2 (2.0-14.0) % Eos % (Auto) 0.1 (0.0-5.0) % Baso % (Auto) 0.1 (0.0-2.0) % Neut # (Auto) 12.15 H (1.40-7.00) K/uL Lymph # (Auto) 1.96 (0.50-3.50) K/uL Oliver # (Auto) 0.77 (0.00-1.00) K/uL Eos # (Auto) 0.01 (0.00-0.50) K/uL Baso # (Auto) 0.02 (0.00-0.20) K/uL Sodium 140 (136-145) mmol/L Potassium 4.4 (3.5-5.1) mmol/L Chloride 103 (98-107) mmol/L Carbon Dioxide 31.6 (21.0-32.0) mmol/L BUN 39 H (7-18) mg/dL Creatinine 1.09 (0.51-1.17) mg/dL Est Cr Clr Drug Dosing 49.02 mL/min Estimated GFR (MDRD) > 60 mL/min Glucose 120 H (74-106) mg/dL POC Glucose 148 H (65-110) mg/dl Calcium 9.5 (8.5-10.1) mg/dL Total Bilirubin 0.6 (0.2-1.0) mg/dL AST 35 (15-37) U/L ALT 31 (12-78) U/L Alkaline Phosphatase 90 (46-116) IU/L NT-Pro-B Natriuret Pep 2483 H (0-125) pg/mL Total Protein 7.3 (6.4-8.2) g/dL Albumin 3.4 (3.4-5.0) g/dL Theophylline 8 L (10-20) ug/dL 05/16/17 05/16/17 05/16/17 Range/Units 07:21 10:49 17:24 WBC (4.0-10.2) K/uL RBC (4.33-5.41) M/uL Hgb (13.1-16.8) g/dL Hct (39.0-49.0) % MCV (84.0-98.0) fL MCH (28.2-33.3) pg MCHC (31.7-36.0) g/dL RDW (11.2-14.1) % Plt Count (150-350) K/uL Neut % (Auto) (45.0-80.0) % Lymph % (Auto) (10.0-50.0) % Oliver % (Auto) (2.0-14.0) % Eos % (Auto) (0.0-5.0) % Baso % (Auto) (0.0-2.0) % Neut # (Auto) (1.40-7.00) K/uL Lymph # (Auto) (0.50-3.50) K/uL Oliver # (Auto) (0.00-1.00) K/uL Eos # (Auto) (0.00-0.50) K/uL Baso # (Auto) (0.00-0.20) K/uL Sodium (136-145) mmol/L Potassium (3.5-5.1) mmol/L Chloride (98-107) mmol/L Carbon Dioxide (21.0-32.0) mmol/L BUN (7-18) mg/dL Creatinine (0.51-1.17) mg/dL Est Cr Clr Drug Dosing mL/min Estimated GFR (MDRD) mL/min Glucose (74-106) mg/dL POC Glucose 105 150 H 156 H (65-110) mg/dl Calcium (8.5-10.1) mg/dL Total Bilirubin (0.2-1.0) mg/dL AST (15-37) U/L ALT (12-78) U/L Alkaline Phosphatase (46-116) IU/L NT-Pro-B Natriuret Pep (0-125) pg/mL Total Protein (6.4-8.2) g/dL Albumin (3.4-5.0) g/dL Theophylline (10-20) ug/dL RE Results - Last 24 hrs: Microbiology 05/12/17 11:18 Aerobic Blood Culture - Preliminary Blood - Venous - Lab Draw NO GROWTH AFTER 4 DAYS Anaerobic Blood Culture - Preliminary NO GROWTH AFTER 4 DAYS 05/12/17 11:18 Aerobic Blood Culture - Preliminary Blood - Venous NO GROWTH AFTER 4 DAYS Anaerobic Blood Culture - Preliminary NO GROWTH AFTER 4 DAYS Med Orders - Current: Current Medications Discontinued Medications Albuterol (Proventil Neb Soln) 2.5 mg NEB Q2H PRN PRN Reason: Wheezing Last Admin: 05/14/17 18:07 Dose: 2.5 mg Albuterol/Ipratropium (Duoneb 3.0-0.5 Mg/3 Ml) 3 ml NEB Q4HRRT PRN PRN Reason: Dyspnea Last Admin: 05/12/17 23:28 Dose: 3 ml Albuterol/Ipratropium (Duoneb 3.0-0.5 Mg/3 Ml) 3 ml NEB QIDRT [facility] Last Admin: 05/16/17 16:50 Dose: 3 ml Aspirin (Aspirin) 81 mg PO BEDTIME [facility] Last Admin: 05/15/17 19:19 Dose: 81 mg Azithromycin (Zithromax) 500 mg PO DAILY [facility] Last Admin: 05/16/17 07:38 Dose: 500 mg Ceftazidime (Fortaz) 1 gm IVPUSH Q8H [facility] Last Admin: 05/13/17 20:10 Dose: 1 gm Ceftazidime (Fortaz) 1 gm IVPUSH Q12HR [facility] Last Admin: 05/16/17 07:40 Dose: 1 gm Clopidogrel Bisulfate (Plavix) 75 mg PO DAILY [facility] Last Admin: 05/16/17 07:37 Dose: 75 mg Docusate Sodium (Colace) 100 mg PO BID [facility] Last Admin: 05/16/17 17:51 Dose: 100 mg Furosemide (Lasix) 40 mg IVPUSH NOW ONE Stop: 05/12/17 11:11 Last Admin: 05/12/17 12:39 Dose: 40 mg Furosemide (Lasix) 40 mg IVPUSH DAILY [facility] Last Admin: 05/16/17 07:39 Dose: 40 mg Azithromycin 500 mg/ Sodium (Chloride) 250 mls @ 250 mls/hr IV Q24H [facility] Last Admin: 05/14/17 11:14 Dose: 250 mls/hr Aminophylline 500 mg/ Sodium (Chloride) 120 mls @ 200 mls/hr IV ONETIME ONE Stop: 05/13/17 20:25 Last Admin: 05/13/17 20:32 Dose: 200 mls/hr Aminophylline 500 mg/ Sodium (Chloride) 520 mls @ 33 mls/hr IV ASDIRECTED [facility] Stop: 05/15/17 23:00 Last Admin: 05/15/17 08:02 Dose: 33 mls/hr Ibuprofen (Motrin) 400 mg PO BID@08,20 PRN PRN Reason: Pain Last Admin: 05/12/17 21:04 Dose: 400 mg Losartan Potassium (Cozaar) 50 mg PO BID [facility] Last Admin: 05/16/17 17:51 Dose: 50 mg Metformin HCl (Glucophage) 500 mg PO DAILY [facility] Last Admin: 05/16/17 07:38 Dose: 500 mg Methylprednisolone Sodium Succinate (Solu-Medrol) 40 mg IVPUSH Q12HR [facility] Last Admin: 05/16/17 07:39 Dose: 40 mg Metoprolol Tartrate (Lopressor) 50 mg PO BID [facility] Last Admin: 05/16/17 17:52 Dose: 50 mg Omeprazole (Omeprazole) 20 mg PO DAILY [facility] Last Admin: 05/13/17 07:23 Dose: 20 mg Omeprazole (Omeprazole) 20 mg PO BEDTIME [facility] Last Admin: 05/15/17 19:17 Dose: 20 mg Psyllium Husk (Metamucil Sugar Free) 1 pkt PO DAILY [facility] Psyllium Husk (Metamucil Sugar Free) 1 pkt PO BID@08,20 [facility] Last Admin: 05/16/17 07:40 Dose: 1 pkt Rosuvastatin Calcium (Crestor) 5 mg PO MoWeFr@1999 [facility] Last Admin: 05/14/17 19:54 Dose: 5 mg Sodium Chloride (Saline Flush) 10 ml FLUSH ASDIRECTED PRN PRN Reason: Keep Vein Open Last Admin: 05/14/17 07:49 Dose: 10 ml Sodium Chloride (Saline Flush) 10 ml FLUSH Q12HR [facility] Last Admin: 05/16/17 07:40 Dose: 10 ml Theophylline (Theophylline Anhydrous) 300 mg PO Q12HR [facility] Last Admin: 05/16/17 07:38 Dose: 300 mg Tramadol HCl (Ultram) 50 mg PO ONETIME ONE Stop: 05/12/17 21:59 Last Admin: 05/12/17 22:20 Dose: 50 mg *Q Meaningful Use (DIS) - VTE *Q VTE Criteria *Q: - Stroke *Q Stroke Criteria *Q: - AMI *Q AMI Criteria *Q:
== END 2017-05-16 17:38 | disposition swing bed (61) | DRG 195 ==
LOC: LL.DI 09:59 → LL.MS 11:00
PROVIDERS: ADMIT Physician Assistant; ATTEND Family Medicine
DX: R06.02 Shortness of breath (principal); J18.9 Pneumonia, unspecified organism; R09.02 Hypoxemia; I50.9 Heart failure, unspecified; E11.9 Type 2 diabetes mellitus without complications; H54.7 Unspecified visual loss; I25.10 Atherosclerotic heart disease of native coronary artery without angina pectoris; I11.0 Hypertensive heart disease with heart failure; Z95.0 Presence of cardiac pacemaker; K21.9 Gastro-esophageal reflux disease without esophagitis; M19.90 Unspecified osteoarthritis, unspecified site; F17.200 Nicotine dependence, unspecified, uncomplicated; Z79.84 Long term (current) use of oral hypoglycemic drugs; Z79.02 Long term (current) use of antithrombotics/antiplatelets; Z79.82 Long term (current) use of aspirin; Z79.899 Other long term (current) drug therapy; Z88.2 Allergy status to sulfonamides; Z88.8 Allergy status to other drugs, medicaments and biological substances
CPT/HCPCS: 36415; 71046; 80053; 80198; 82803; 82962; 83880; 85025; 86140; 86738; 87040; 94640; 97161-GP; 97530-GP; A9270-GY; J0456; J0713; J1940; J2920; J7040; J7050; J7620-GY

== ENCOUNTER 2017-05-16 16:42 | Inpatient (IN) | payer MEDICARE, BC ==
[2017-05-16] MEDS ORDERED: Sodium Chloride 0.9% 10 ML Syringe FLUSH PRN ×2 (17:13)
[2017-05-16] MEDS ORDERED: Albuterol/Ipratropium 3.0-0.5 MG/3 ML Neb Soln NEB PRN (17:13)
[2017-05-16] MEDS ORDERED: Ibuprofen 400 MG Tab PO PRN (17:13)
[2017-05-16] MEDS ORDERED: Albuterol 0.083% 2.5 MG/3 ML Neb Soln NEB PRN (17:13)
[2017-05-16] MEDS ORDERED: Rosuvastatin 10 MG Tab PO SCH (20:00)
[2017-05-16] MEDS: Losartan 50 MG Tab PO SCH (21:24)
[2017-05-16] MEDS: Docusate Sodium 100 MG Cap PO SCH (21:24)
[2017-05-16] MEDS: Metoprolol Tartrate 50 MG Tab PO SCH (21:25)
[2017-05-16] MEDS: Albuterol/Ipratropium 3.0-0.5 MG/3 ML Neb Soln NEB SCH (21:38)
[2017-05-16] MEDS: Omeprazole 20 MG Cap.CR PO SCH (21:39)
[2017-05-16] MEDS: Theophylline 300 MG Tab.ER PO SCH (21:39)
[2017-05-16] MEDS: cefTAZidime 1 GM Vial IVPUSH SCH (21:40)
[2017-05-16] MEDS: methylPREDNISolone Sodium Succinate 40 MG/1 ML SDV IVPUSH SCH (21:40)
[2017-05-16] MEDS: Sodium Chloride 0.9% 10 ML Syringe FLUSH SCH (21:40)
[2017-05-16] MEDS: Aspirin 81 MG Tab.Chew PO SCH (21:40)
[2017-05-16] MEDS: Psyllium Husk Powder Sugar Free 5.85 GM Packet PO SCH (21:41)
--- NOTE | 2017-05-16 23:12 | PCM.HP ---
H&P History of Present Illness - General Date of Service: 05/16/17 Admit Problem/Dx: Admission Diagnosis/Problem Admission Diagnosis/Problem Pneumonia Source of Information: Patient, Old Records History Limitations: Reports: No Limitations - History of Present Illness Location: Reports: Chest Associated Symptoms: Reports: Cough - Related Data Allergies/Adverse Reactions: Allergies Allergy/AdvReac Type Severity Reaction Status Date / Time lisinopril Allergy Unknown Cough Verified 10/13/14 11:42 blueberry Allergy unknown Verified 10/13/14 11:42 gentamicin Allergy unknown Verified 10/13/14 11:42 rabeprazole sodium Allergy unknown Verified 10/13/14 11:42 [From Aciphex] raspberry Allergy unknown Verified 10/13/14 11:42 Sulfa (Sulfonamide Allergy Itching Verified 10/13/14 11:42 Antibiotics) Home Medications: Home Meds Aspirin [Carlene Chewable Aspirin] 81 mg PO BEDTIME 06/30/14 [History] Clopidogrel [Plavix] 75 mg PO DAILY 06/30/14 [History] Ibuprofen 400 mg PO BID 06/30/14 [History] Losartan Potassium [Cozaar] 50 mg PO BID 06/30/14 [History] Metoprolol Tartrate 50 mg PO BID 06/30/14 [History] metFORMIN [Glucophage] 500 mg PO DAILY 06/30/14 [History] traMADol [Ultram] 50 mg PO BID@06/30/14 [History] Omeprazole 1 cap PO DAILY 10/12/14 [History] Albuterol Sulfate [Proair Respiclick] 2 puff INH Q6HR PRN 05/12/17 [History] Beta-Carotene(A) W-C & E/Min [Vision Vitamins] 2 each PO BID@05/12/17 [ History] Docusate Sodium [Colace] 100 mg PO BID 05/12/17 [History] Furosemide [Lasix] 20 mg PO DAILY 05/12/17 [History] Ibuprofen 400 mg PO BEDTIME 05/12/17 [History] Ibuprofen 600 mg PO DAILY 05/12/17 [History] Psyllium with Sucrose [Metamucil] 1 gm PO BID 05/12/17 [History] Rosuvastatin [Crestor] 5 mg PO [id number]/12/17 [History] traMADol [Ultram] 50 mg PO DAILY PRN 05/12/17 [History] Past Medical History HEENT History: Reports: Impaired Vision Cardiovascular History: Reports: CAD, Heart Failure, Hypertension, Pacemaker Respiratory History: Reports: Pneumonia, Recurrent Gastrointestinal History: Reports: Diverticulosis, GERD Endocrine/Metabolic History: Reports: Diabetes, Type II - Past Surgical History HEENT Surgical History: Reports: Cataract Surgery Cardiovascular Surgical History: Reports: Carotid Stents, Pacer GI Surgical History: Reports: Cholecystectomy Other GI Surgeries/Procedures: recurrent abd pain Social & Family History - Tobacco Use Smoking Status *Q: Current Every Day Smoker Years of Tobacco use: 60 Packs/Tins Daily: 0 Used Tobacco, but Quit: Yes Month/Year Tobacco Last Used: 2017 Second Hand Smoke Exposure: No - Alcohol Use Days Per Week of Alcohol Use: 0 (no previous DWI, etc.) Number of Drinks Per Day: 1 (usually one beer every 2 months) Total Drinks Per Week: 0 - Recreational Drug Use Recreational Drug Use: No Drug Use in Last 12 Months: Yes Recreational Drug Type: Reports: Other (see below) (chronic Ultram use) Recreational Drug Use Frequency: Daily - Living Situation & Occupation Living situation: Reports: Occupation: Retired H&P Review of Systems - Review of Systems: Review Of Systems: See Below General: Reports: Fatigue HEENT: Reports: No Symptoms Pulmonary: Reports: Shortness of Breath, Wheezing, Cough Cardiovascular: Reports: Dyspnea on Exertion Gastrointestinal: Reports: No Symptoms Genitourinary: Reports: No Symptoms Musculoskeletal: Reports: No Symptoms Skin: Reports: No Symptoms Psychiatric: Reports: No Symptoms Neurological: Reports: No Symptoms Hematologic/Lymphatic: Reports: No Symptoms Immunologic: Reports: No Symptoms Exam - Exam Exam: See Below - Vital Signs Vital Signs: Last Vital Signs Temp 97.8 F 05/16/17 20:00 Pulse 65 05/16/17 20:00 Resp 20 05/16/17 20:00 BP 155/67 H 05/16/17 20:00 Pulse Ox 93 L 05/16/17 20:00 - Exam General: Alert, Cooperative HEENT: Mucosa Moist & [place], Nares Patent Neck: Trachea Midline Lungs: Normal Respiratory Effort, Crackles, Rhonchi, Wheezing Cardiovascular: Regular Rate, Regular Rhythm GI/Abdominal Exam: Soft, Non-Tender, No Distention (Male) Exam: Deferred Rectal (Males) Exam: Deferred Back Exam: Normal Inspection Extremities: Non-Tender, Pedal Edema Skin: Warm, Dry, Intact Neurological: Normal Speech Neuro Extensive - Mental Status: Alert, Normal Mood/Affect, Normal Cognition Psychiatric: Alert, Normal Affect, Normal Mood *Q Meaningful Use (ADM) - VTE *Q VTE Criteria *Q: - Stroke *Q Stroke Criteria *Q: - AMI *Q AMI Criteria *Q: - Problem List (1) COPD (chronic obstructive pulmonary disease) SNOMED Code(s): 37831079 ICD Code: J44.9 - CHRONIC OBSTRUCTIVE PULMONARY DISEASE, UNSPECIFIED Status : Acute Priority: High Current Visit: Yes (2) Diabetes mellitus SNOMED Code(s): 67690486 ICD Code: E11.9 - TYPE 2 DIABETES MELLITUS WITHOUT COMPLICATIONS Status: Acute Priority: Medium Current Visit: No Problem Details: Blood sugars under good control by patient history with compliance with diet encouraged secondary to his current obesity (3) Heart disease SNOMED Code(s): 67969414 ICD Code: I51.9 - HEART DISEASE, UNSPECIFIED Status: Acute Priority: Medium Current Visit: No Problem Details: No chest pain or anginal complaints. Continue to observe closely for his regular provider. He is not a candidate for an MRI secondary to his current pacemaker. (4) Hypertension SNOMED Code(s): 14601537 ICD Code: I10 - ESSENTIAL (PRIMARY) HYPERTENSION Status: Acute Priority: Medium Current Visit: No Problem Details: Blood pressure is under good control during this evaluation (5) Hypoxia SNOMED Code(s): 898941400 ICD Code: R09.02 - HYPOXEMIA Status: Acute Priority: High Current Visit : No (6) Osteoarthritis SNOMED Code(s): 406933803 ICD Code: M19.90 - UNSPECIFIED OSTEOARTHRITIS, UNSPECIFIED SITE Status: Acute Priority: High Current Visit: No Problem Details: Chronic low back pain with mild exacerbation today. Treatment and followup as per discharge instructions. Patient was cautioned to use Ultram with discretion especially with new Flexeril therapy. No acute injury with patient apparently having completed physical therapy in this facility about one month ago. (7) Peptic reflux disease SNOMED Code(s): 835490980 ICD Code: K21.9 - GASTRO-ESOPHAGEAL REFLUX DISEASE WITHOUT ESOPHAGITIS Status: Acute Priority: Medium Current Visit: No Problem Details: Previously treated H. pylori infection as above. No current symptoms with regular ibuprofen usage. Once again no true abdominal pain today, however note that patient has not yet had a screening colonoscopy, which was recommended to be discussed with his regular provider today (8) Pneumonia SNOMED Code(s): 978896100 ICD Code: J18.9 - PNEUMONIA, UNSPECIFIED ORGANISM Status: Acute Priority : High Current Visit: No Qualifiers: Pneumonia type: due to unspecified organism Laterality: bilateral (9) Tobacco use SNOMED Code(s): 273253313 ICD Code: Z72.0 - TOBACCO USE Status: Acute Priority: Medium Current Visit: No Problem Details: Tobacco cessation strongly encouraged with information provided at discharge (10) Heart failure SNOMED Code(s): 90252509 ICD Code: I50.9 - HEART FAILURE, UNSPECIFIED Status: Chronic Priority: High Current Visit: No Qualifiers: Heart failure type: unspecified Heart failure chronicity: acute on chronic Qualified Code(s): I50.9 - Heart failure, unspecified Problem List Initiated/Reviewed/Updated: Yes Orders Last 24hrs: Active Orders 24 hr Category Date Time Status Admission Status [Patient Status] [ADT] Routine ADT 05/16/17 17:15 Active Accu Check [Blood Glucose Check, Bedside] [RC] TIDMEALS Care 05/16/17 17:13 Active Ambulate [RC] PER UNIT ROUTINE Care 05/16/17 17:13 Active Antiembolic Devices [RC] BID Care 05/16/17 17:13 Active Antiembolic Devices [RC] PER UNIT ROUTINE Care 05/16/17 17:13 Active Height and Weight [RC] DAILY Care 05/16/17 17:13 Active May Shower [RC] ASDIRECTED Care 05/16/17 17:13 Active Oxygen Therapy [RC] 23 Care 05/16/17 17:13 Active Pulse Oximetry [RC] PRN Care 05/16/17 17:13 Active RT Aerosol Therapy [RC] 08,12,16,20 Care 05/16/17 17:13 Active RT Aerosol Therapy [RC] ASDIRECTED Care 05/16/17 17:13 Active RT Aerosol Therapy [RC] ASDIRECTED Care 05/16/17 17:13 Active RT Aerosol Therapy [RC] ASDIRECTED Care 05/16/17 17:13 Active Up ad Soumya [RC] ASDIRECTED Care 05/16/17 17:13 Active VTE/DVT Education [RC] PER UNIT ROUTINE Care 05/16/17 17:13 Active Vital Signs [RC] QID Care 05/16/17 17:13 Active PT Evaluation and Treatment [CONS] Routine Cons 05/16/17 17:13 Active [place] [employer] Diet [DIET] Diet 05/16/17 Lunch Active Albuterol [Proventil Neb Soln] Med 05/16/17 17:13 Active 2.5 mg NEB Q2H PRN Albuterol/Ipratropium [DuoNeb 3.0-0.5 MG/3 ML] Med 05/16/17 17:13 Active 3 ml NEB Q4HRRT PRN Albuterol/Ipratropium [DuoNeb 3.0-0.5 MG/3 ML] Med 05/16/17 20:00 Active 3 ml NEB QIDRT Aspirin Med 05/16/17 20:00 Active 81 mg PO BEDTIME Azithromycin [Zithromax] Med 05/17/17 08:00 Active 500 mg PO DAILY Clopidogrel [Plavix] Med 05/17/17 08:00 Active 75 mg PO DAILY Docusate Sodium [Colace] Med 05/16/17 18:00 Active 100 mg PO BID Furosemide [Lasix] Med 05/17/17 08:00 Active 40 mg IVPUSH DAILY Ibuprofen [Motrin] Med 05/16/17 17:13 Active 400 mg PO BID@08,20 PRN Losartan [Cozaar] Med 05/16/17 18:00 Active 50 mg PO BID Metoprolol Tartrate [Lopressor] Med 05/16/17 18:00 Active 50 mg PO BID Omeprazole Med 05/16/17 20:00 Active 20 mg PO BEDTIME Psyllium Husk/Aspartame [Metamucil Sugar Free] Med 05/16/17 20:00 Active 1 pkt PO BID@08,20 Rosuvastatin [Crestor] Med 05/16/17 20:00 Active 5 mg PO [id number] Sodium Chloride 0.9% [Saline Flush] Med 05/16/17 17:13 Active 10 ml FLUSH ASDIRECTED PRN Sodium Chloride 0.9% [Saline Flush] Med 05/16/17 20:00 Active 10 ml FLUSH Q12HR Theophylline [Theophylline Anhydrous] Med 05/16/17 20:00 Active 300 mg PO Q12HR cefTAZidime [Fortaz] Med 05/16/17 20:00 Active 1 gm IVPUSH Q12HR metFORMIN [Glucophage] Med 05/17/17 08:00 Active 500 mg PO DAILY methylPREDNISolone Sod Succ [Solu-MEDROL] Med 05/16/17 20:00 Active 40 mg IVPUSH Q12HR Antiembolic Hose [OM.PC] Per Unit Routine Oth 05/16/17 17:13 Ordered Saline Lock Insert [OM.PC] Routine Oth 05/16/17 17:13 Ordered Code Status [Resuscitation Status] Routine Resus Stat 05/16/17 17:16 Ordered Medication Orders Albuterol (Proventil Neb Soln) 2.5 mg NEB Q2H PRN PRN Reason: Wheezing Albuterol/Ipratropium (Duoneb 3.0-0.5 Mg/3 Ml) 3 ml NEB Q4HRRT PRN PRN Reason: Dyspnea Albuterol/Ipratropium (Duoneb 3.0-0.5 Mg/3 Ml) 3 ml NEB QIDRT [facility] Last Admin: 05/16/17 21:38 Dose: 3 ml Aspirin (Aspirin) 81 mg PO BEDTIME [facility] Last Admin: 05/16/17 21:40 Dose: 81 mg Azithromycin (Zithromax) 500 mg PO DAILY [facility] Ceftazidime (Fortaz) 1 gm IVPUSH Q12HR [facility] Last Admin: 05/16/17 21:40 Dose: 1 gm Clopidogrel Bisulfate (Plavix) 75 mg PO DAILY [facility] Docusate Sodium (Colace) 100 mg PO BID [facility] Last Admin: 05/16/17 21:24 Dose: Furosemide (Lasix) 40 mg IVPUSH DAILY [facility] Ibuprofen (Motrin) 400 mg PO BID@08,20 PRN PRN Reason: Pain Losartan Potassium (Cozaar) 50 mg PO BID [facility] Last Admin: 05/16/17 21:24 Dose: Metformin HCl (Glucophage) 500 mg PO DAILY [facility] Methylprednisolone Sodium Succinate (Solu-Medrol) 40 mg IVPUSH Q12HR [facility] Last Admin: 05/16/17 21:40 Dose: 40 mg Metoprolol Tartrate (Lopressor) 50 mg PO BID [facility] Last Admin: 05/16/17 21:25 Dose: Omeprazole (Omeprazole) 20 mg PO BEDTIME [facility] Last Admin: 05/16/17 21:39 Dose: 20 mg Psyllium Husk (Metamucil Sugar Free) 1 pkt PO BID@08,20 [facility] Last Admin: 05/16/17 21:41 Dose: 1 pkt Rosuvastatin Calcium (Crestor) 5 mg PO [id number]@1999 [facility] Last Admin: 05/16/17 21:39 Dose: 5 mg Sodium Chloride (Saline Flush) 10 ml FLUSH ASDIRECTED PRN PRN Reason: Keep Vein Open Sodium Chloride (Saline Flush) 10 ml FLUSH Q12HR [facility] Last Admin: 05/16/17 21:40 Dose: 10 ml Theophylline (Theophylline Anhydrous) 300 mg PO Q12HR [facility] Last Admin: 05/16/17 21:39 Dose: 300 mg Assessment/Plan Comment:: 05/16/17 Leticia Rodriguez MD Acute hospitalizing for acute exacerbation of COPD, pneumonia, CHF, now stable for transfer into swing bed for continued IV antibiotics, IV lasix, IV solu- medrol, respiratory treatments, monitor BP, monitor hypoxia, kidney function.
[2017-05-17 08:19] LABS: CHLORIDE,CL 103 mmol/L (98-107); SODIUM,NA 140 mmol/L (136-145)
[2017-05-17] MEDS: cefTAZidime 1 GM Vial IVPUSH SCH ×2 (08:52→19:33)
[2017-05-17] MEDS: Furosemide 40 MG/4 ML VIAL IVPUSH SCH (08:52)
[2017-05-17] MEDS: metFORMIN 500 MG Tab PO SCH (08:52)
[2017-05-17] MEDS: Clopidogrel 75 MG Tab PO SCH (08:52)
[2017-05-17] MEDS: methylPREDNISolone Sodium Succinate 40 MG/1 ML SDV IVPUSH SCH ×2 (08:52→19:31)
[2017-05-17] MEDS: Theophylline 300 MG Tab.ER PO SCH ×2 (08:52→19:34)
[2017-05-17] MEDS: Albuterol/Ipratropium 3.0-0.5 MG/3 ML Neb Soln NEB SCH ×4 (08:52→19:34)
[2017-05-17] MEDS: Metoprolol Tartrate 50 MG Tab PO SCH ×2 (08:53→17:13)
[2017-05-17] MEDS: Azithromycin 250 MG Tab PO SCH (08:53)
[2017-05-17] MEDS: Sodium Chloride 0.9% 10 ML Syringe FLUSH SCH ×2 (08:54→19:31)
[2017-05-17] MEDS: Psyllium Husk Powder Sugar Free 5.85 GM Packet PO SCH ×2 (08:55→19:35)
[2017-05-17] MEDS: Losartan 50 MG Tab PO SCH ×2 (08:56→17:13)
[2017-05-17] MEDS: Docusate Sodium 100 MG Cap PO SCH ×2 (08:57→17:13)
[2017-05-17] MEDS: Omeprazole 20 MG Cap.CR PO SCH (19:34)
[2017-05-17] MEDS: Aspirin 81 MG Tab.Chew PO SCH (19:35)
[2017-05-18] MEDS: Docusate Sodium 100 MG Cap PO SCH ×2 (07:39→17:17)
[2017-05-18] MEDS: Psyllium Husk Powder Sugar Free 5.85 GM Packet PO SCH ×2 (07:39→20:28)
[2017-05-18] MEDS: Clopidogrel 75 MG Tab PO SCH (07:40)
[2017-05-18] MEDS: Losartan 50 MG Tab PO SCH ×2 (07:40→17:16)
[2017-05-18] MEDS: metFORMIN 500 MG Tab PO SCH (07:40)
[2017-05-18] MEDS: Theophylline 300 MG Tab.ER PO SCH ×2 (07:40→20:27)
[2017-05-18] MEDS: Furosemide 40 MG/4 ML VIAL IVPUSH SCH (07:41)
[2017-05-18] MEDS: methylPREDNISolone Sodium Succinate 40 MG/1 ML SDV IVPUSH SCH (07:41)
[2017-05-18] MEDS: Albuterol/Ipratropium 3.0-0.5 MG/3 ML Neb Soln NEB SCH ×4 (07:41→20:27)
[2017-05-18] MEDS: Azithromycin 250 MG Tab PO SCH (07:41)
[2017-05-18] MEDS: Metoprolol Tartrate 50 MG Tab PO SCH ×2 (07:41→17:16)
[2017-05-18] MEDS: cefTAZidime 1 GM Vial IVPUSH SCH ×2 (07:41→20:29)
[2017-05-18] MEDS: Sodium Chloride 0.9% 10 ML Syringe FLUSH SCH ×2 (07:42→20:29)
[2017-05-18] MEDS: Omeprazole 20 MG Cap.CR PO SCH (20:27)
[2017-05-18] MEDS: Aspirin 81 MG Tab.Chew PO SCH (20:27)
[2017-05-19] MEDS: Docusate Sodium 100 MG Cap PO SCH (07:34)
[2017-05-19] MEDS: cefTAZidime 1 GM Vial IVPUSH SCH (07:35)
[2017-05-19] MEDS: Metoprolol Tartrate 50 MG Tab PO SCH (07:35)
[2017-05-19] MEDS: metFORMIN 500 MG Tab PO SCH (07:35)
[2017-05-19] MEDS: Losartan 50 MG Tab PO SCH (07:35)
[2017-05-19] MEDS: Albuterol/Ipratropium 3.0-0.5 MG/3 ML Neb Soln NEB SCH ×2 (07:35→11:31)
[2017-05-19] MEDS: Clopidogrel 75 MG Tab PO SCH (07:36)
[2017-05-19] MEDS: Theophylline 300 MG Tab.ER PO SCH (07:36)
[2017-05-19] MEDS: Psyllium Husk Powder Sugar Free 5.85 GM Packet PO SCH (07:36)
[2017-05-19] MEDS: Azithromycin 250 MG Tab PO SCH (07:36)
[2017-05-19] MEDS: Sodium Chloride 0.9% 10 ML Syringe FLUSH SCH (07:37)
[2017-05-19 07:58] LABS: CHLORIDE,CL 101 mmol/L (98-107); SODIUM,NA 140 mmol/L (136-145)
[2017-05-19] MEDS ORDERED: methylPREDNISolone Sodium Succinate 40 MG/1 ML SDV IVPUSH SCH (08:00)
[2017-05-19] MEDS ORDERED: Furosemide 40 MG Tab PO SCH (08:00)
[2017-05-19 11:08] VITALS: BP 138/67
--- NOTE | 2017-05-19 11:48 | PCM.PN ---
- General Info Date of Service: 05/19/17 Admission Dx/Problem (Free Text): Admission Diagnosis/Problem Admission Diagnosis/Problem Pneumonia - Review of Systems General: Reports: No Symptoms HEENT: Reports: No Symptoms Pulmonary: Reports: No Symptoms Cardiovascular: Reports: No Symptoms Gastrointestinal: Reports: No Symptoms Genitourinary: Reports: No Symptoms Musculoskeletal: Reports: No Symptoms Skin: Reports: No Symptoms Neurological: Reports: No Symptoms Psychiatric: Reports: No Symptoms - Patient Data Vitals - Most Recent: Last Vital Signs Temp 97.8 F 05/19/17 11:06 Pulse 43 L 05/19/17 11:06 Resp 10 L 05/18/17 20:00 BP 138/67 05/19/17 11:06 Pulse Ox 96 05/19/17 11:06 Weight - Most Recent: 221 lb 6.4 oz I&O - Last 24 Hours: Intake & Output 05/18/17 05/19/17 05/19/17 22:59 06:59 14:59 Intake Total 680 400 360 Output Total 500 450 Balance 180 400 -90 Lab Results Last 24 Hours: Laboratory Results - last 24 hr 05/18/17 05/19/17 05/19/17 Range/Units 17:13 06:55 06:55 WBC 14.2 H (4.0-10.2) K/uL RBC 5.01 (4.33-5.41) M/uL Hgb 16.2 (13.1-16.8) g/dL Hct 46.8 (39.0-49.0) % MCV 93.4 (84.0-98.0) fL MCH 32.3 (28.2-33.3) pg MCHC 34.6 (31.7-36.0) g/dL RDW 13.0 (11.2-14.1) % Plt Count 198 (150-350) K/uL Neut % (Auto) 70.6 (45.0-80.0) % Lymph % (Auto) 19.8 (10.0-50.0) % [place] % (Auto) 8.6 (2.0-14.0) % Eos % (Auto) 0.8 (0.0-5.0) % Baso % (Auto) 0.2 (0.0-2.0) % Neut # (Auto) 9.99 H (1.40-7.00) K/uL Lymph # (Auto) 2.81 (0.50-3.50) K/uL [place] # (Auto) 1.22 H (0.00-1.00) K/uL Eos # (Auto) 0.12 (0.00-0.50) K/uL Baso # (Auto) 0.03 (0.00-0.20) K/uL Sodium 140 (136-145) mmol/L Potassium 3.1 L (3.5-5.1) mmol/L Chloride 101 (98-107) mmol/L Carbon Dioxide 32.1 H (21.0-32.0) mmol/L BUN 50 H (7-18) mg/dL Creatinine 1.20 H (0.51-1.17) mg/dL Est Cr Clr Drug Dosing 44.31 mL/min Estimated GFR (MDRD) 58 mL/min Glucose 112 H (74-106) mg/dL POC Glucose 102 (65-110) mg/dl Calcium 8.9 (8.5-10.1) mg/dL Total Bilirubin 0.9 (0.2-1.0) mg/dL AST 29 (15-37) U/L ALT 57 (12-78) U/L Alkaline Phosphatase 86 (46-116) IU/L C-Reactive Protein < 0.9 (<=0.9) mg/dL NT-Pro-B Natriuret Pep 1239 H (0-125) pg/mL Total Protein 7.0 (6.4-8.2) g/dL Albumin 3.4 (3.4-5.0) g/dL Theophylline 13 (10-20) ug/dL 05/19/17 05/19/17 Range/Units 07:05 11:12 WBC (4.0-10.2) K/uL RBC (4.33-5.41) M/uL Hgb (13.1-16.8) g/dL Hct (39.0-49.0) % MCV (84.0-98.0) fL MCH (28.2-33.3) pg MCHC (31.7-36.0) g/dL RDW (11.2-14.1) % Plt Count (150-350) K/uL Neut % (Auto) (45.0-80.0) % Lymph % (Auto) (10.0-50.0) % [place] % (Auto) (2.0-14.0) % Eos % (Auto) (0.0-5.0) % Baso % (Auto) (0.0-2.0) % Neut # (Auto) (1.40-7.00) K/uL Lymph # (Auto) (0.50-3.50) K/uL [place] # (Auto) (0.00-1.00) K/uL Eos # (Auto) (0.00-0.50) K/uL Baso # (Auto) (0.00-0.20) K/uL Sodium (136-145) mmol/L Potassium (3.5-5.1) mmol/L Chloride (98-107) mmol/L Carbon Dioxide (21.0-32.0) mmol/L BUN (7-18) mg/dL Creatinine (0.51-1.17) mg/dL Est Cr Clr Drug Dosing mL/min Estimated GFR (MDRD) mL/min Glucose (74-106) mg/dL POC Glucose 101 126 H (65-110) mg/dl Calcium (8.5-10.1) mg/dL Total Bilirubin (0.2-1.0) mg/dL AST (15-37) U/L ALT (12-78) U/L Alkaline Phosphatase (46-116) IU/L C-Reactive Protein (<=0.9) mg/dL NT-Pro-B Natriuret Pep (0-125) pg/mL Total Protein (6.4-8.2) g/dL Albumin (3.4-5.0) g/dL Theophylline (10-20) ug/dL Med Orders - Current: Current Medications Albuterol (Proventil Neb Soln) 2.5 mg NEB Q2H PRN PRN Reason: Wheezing Albuterol/Ipratropium (Duoneb 3.0-0.5 Mg/3 Ml) 3 ml NEB Q4HRRT PRN PRN Reason: Dyspnea Albuterol/Ipratropium (Duoneb 3.0-0.5 Mg/3 Ml) 3 ml NEB QIDRT [facility] Last Admin: 05/19/17 11:31 Dose: 3 ml Aspirin (Aspirin) 81 mg PO BEDTIME [facility] Last Admin: 05/18/17 20:27 Dose: 81 mg Azithromycin (Zithromax) 500 mg PO DAILY [facility] Last Admin: 05/19/17 07:36 Dose: 500 mg Ceftazidime (Fortaz) 1 gm IVPUSH Q12HR [facility] Last Admin: 05/19/17 07:35 Dose: 1 gm Clopidogrel Bisulfate (Plavix) 75 mg PO DAILY [facility] Last Admin: 05/19/17 07:36 Dose: 75 mg Docusate Sodium (Colace) 100 mg PO BID [facility] Last Admin: 05/19/17 07:34 Dose: 100 mg Furosemide (Lasix) 40 mg PO DAILY [facility] Last Admin: 05/19/17 07:35 Dose: 40 mg Ibuprofen (Motrin) 400 mg PO BID@08,20 PRN PRN Reason: Pain Losartan Potassium (Cozaar) 50 mg PO BID [facility] Last Admin: 05/19/17 07:35 Dose: 50 mg Metformin HCl (Glucophage) 500 mg PO DAILY [facility] Last Admin: 05/19/17 07:35 Dose: 500 mg Methylprednisolone Sodium Succinate (Solu-Medrol) 40 mg IVPUSH DAILY [facility] Last Admin: 05/19/17 07:36 Dose: 40 mg Metoprolol Tartrate (Lopressor) 50 mg PO BID [facility] Last Admin: 05/19/17 07:35 Dose: 50 mg Omeprazole (Omeprazole) 20 mg PO BEDTIME [facility] Last Admin: 05/18/17 20:27 Dose: 20 mg Psyllium Husk (Metamucil Sugar Free) 1 pkt PO BID@08,20 [facility] Last Admin: 05/19/17 07:36 Dose: 1 pkt Rosuvastatin Calcium (Crestor) 5 mg PO MoWeFr@1999 [facility] Last Admin: 05/16/17 21:39 Dose: 5 mg Sodium Chloride (Saline Flush) 10 ml FLUSH ASDIRECTED PRN PRN Reason: Keep Vein Open Sodium Chloride (Saline Flush) 10 ml FLUSH Q12HR [facility] Last Admin: 05/19/17 07:37 Dose: 10 ml Theophylline (Theophylline Anhydrous) 300 mg PO Q12HR [facility] Last Admin: 05/19/17 07:36 Dose: 300 mg Discontinued Medications Furosemide (Lasix) 40 mg IVPUSH DAILY [facility] Last Admin: 05/18/17 07:41 Dose: 40 mg Methylprednisolone Sodium Succinate (Solu-Medrol) 40 mg IVPUSH Q12HR [facility] Last Admin: 05/18/17 07:41 Dose: 40 mg Sodium Chloride (Saline Flush) 10 ml FLUSH ASDIRECTED PRN PRN Reason: Keep Vein Open - Exam General: Alert, Oriented HEENT: EOMI, Mucous Membr. Moist/[place] Neck: Supple, Trachea Midline Lungs: Normal Respiratory Effort, Rhonchi (faint rhonchi in the bases bilat) Cardiovascular: Regular Rate, Regular Rhythm GI/Abdominal Exam: Normal Bowel Sounds, Soft, Non-Tender, No Distention (Male) Exam: Deferred Back Exam: Normal Inspection, Full Range of Motion Extremities: No Pedal Edema Neurological: No New Focal Deficit Psy/Mental Status: Alert, Normal Affect, Normal Mood - Problem List Review Problem List Initiated/Reviewed/Updated: Yes - Plan Plan:: 05/16/17 Leticia Rodriguez MD Acute hospitalizing for acute exacerbation of COPD, pneumonia, CHF, now stable for transfer into swing bed for continued IV antibiotics, IV lasix, IV solu- medrol, respiratory treatments, monitor BP, monitor hypoxia, kidney function. 05-19-17 Ailyn Joseph PA-C Patient very much want to go home. Says feels great, some cough but minimal. No CP. Labs reviewed. Home on po antibiotics and prednisone, will follow up in [facility].
--- NOTE | 2017-05-19 12:06 | PCM.DCSUM1 ---
Discharge Summary - Hospital Course Brief History: Initially admitted to [facility] for pneumonia with acute exacerbation of COPD and CHF. Was hypoxic on RA at the clinic at 86-88%. - Discharge Data Discharge Date: 05/19/17 Discharge Disposition: Home, Self-Care 01 Condition: Good - Patient Summary/Data Consults: Consultations 05/16/17 17:13 PT Evaluation and Treatment [CONS] Routine Hospital Course: Was treatly acutely with IV antibiotics, Lasix and solu-medrol. On oxygen. Did improve but was not ready for discharge, so was transferred to [facility] for a couple days. Clinically markedly improved and ready for discharge today. - Patient Instructions Diet: Diabetic Diet Activity: As Tolerated Driving: May Drive Today Showering/Bathing: May Shower Other/Special Instructions: Follow up in the clinic this Friday. NO SMOKING! - Discharge Plan Prescriptions/Med Rec: Cefprozil 500 mg PO BID #8 tablet predniSONE 20 mg PO WITHBREAKFAST #6 tab Home Medications: Home Meds Aspirin [Carlene Chewable Aspirin] 81 mg PO BEDTIME 06/30/14 [History] Clopidogrel [Plavix] 75 mg PO DAILY 06/30/14 [History] Ibuprofen 400 mg PO BID 06/30/14 [History] Losartan Potassium [Cozaar] 50 mg PO BID 06/30/14 [History] Metoprolol Tartrate 50 mg PO BID 06/30/14 [History] metFORMIN [Glucophage] 500 mg PO DAILY 06/30/14 [History] traMADol [Ultram] 50 mg PO BID@,06/30/14 [History] Omeprazole 1 cap PO DAILY 10/12/14 [History] Albuterol Sulfate [Proair Respiclick] 2 puff INH Q6HR PRN 05/12/17 [History] Beta-Carotene(A) W-C & E/Min [Vision Vitamins] 2 each PO BID@,05/12/17 [ History] Docusate Sodium [Colace] 100 mg PO BID 05/12/17 [History] Furosemide [Lasix] 20 mg PO DAILY 05/12/17 [History] Psyllium with Sucrose [Metamucil] 1 gm PO BID 05/12/17 [History] Rosuvastatin [Crestor] 5 mg PO MOWEFR@199905/12/17 [History] traMADol [Ultram] 50 mg PO DAILY PRN 05/12/17 [History] Cefprozil 500 mg PO BID #8 tablet 05/19/17 [Rx] predniSONE 20 mg PO WITHBREAKFAST #6 tab 05/19/17 [Rx] - Discharge Summary/Plan Comment DC Time >30 min.: Yes Discharge Summary/Plan Comment: Discharging to home today on po Cefzil and a tapering course of prednisone. Will follow up in the clinic. Much encouragement given to remain tobacco free! - Patient Data Vitals - Most Recent: Last Vital Signs Temp 97.8 F 05/19/17 11:06 Pulse 43 L 05/19/17 11:06 Resp 10 L 05/18/17 20:00 BP 138/67 05/19/17 11:06 Pulse Ox 96 05/19/17 11:06 Weight - Most Recent: 221 lb 6.4 oz I&O - Last 24 hours: Intake & Output 05/18/17 05/19/17 05/19/17 22:59 06:59 14:59 Intake Total 680 400 360 Output Total 500 450 Balance 180 400 -90 Lab Results - Last 24 hrs: Laboratory Results - last 24 hr 05/18/17 05/19/17 05/19/17 Range/Units 17:13 06:55 06:55 WBC 14.2 H (4.0-10.2) K/uL RBC 5.01 (4.33-5.41) M/uL Hgb 16.2 (13.1-16.8) g/dL Hct 46.8 (39.0-49.0) % MCV 93.4 (84.0-98.0) fL MCH 32.3 (28.2-33.3) pg MCHC 34.6 (31.7-36.0) g/dL RDW 13.0 (11.2-14.1) % Plt Count 198 (150-350) K/uL Neut % (Auto) 70.6 (45.0-80.0) % Lymph % (Auto) 19.8 (10.0-50.0) % [place] % (Auto) 8.6 (2.0-14.0) % Eos % (Auto) 0.8 (0.0-5.0) % Baso % (Auto) 0.2 (0.0-2.0) % Neut # (Auto) 9.99 H (1.40-7.00) K/uL Lymph # (Auto) 2.81 (0.50-3.50) K/uL [place] # (Auto) 1.22 H (0.00-1.00) K/uL Eos # (Auto) 0.12 (0.00-0.50) K/uL Baso # (Auto) 0.03 (0.00-0.20) K/uL Sodium 140 (136-145) mmol/L Potassium 3.1 L (3.5-5.1) mmol/L Chloride 101 (98-107) mmol/L Carbon Dioxide 32.1 H (21.0-32.0) mmol/L BUN 50 H (7-18) mg/dL Creatinine 1.20 H (0.51-1.17) mg/dL Est Cr Clr Drug Dosing 44.31 mL/min Estimated GFR (MDRD) 58 mL/min Glucose 112 H (74-106) mg/dL POC Glucose 102 (65-110) mg/dl Calcium 8.9 (8.5-10.1) mg/dL Total Bilirubin 0.9 (0.2-1.0) mg/dL AST 29 (15-37) U/L ALT 57 (12-78) U/L Alkaline Phosphatase 86 (46-116) IU/L C-Reactive Protein < 0.9 (<=0.9) mg/dL NT-Pro-B Natriuret Pep 1239 H (0-125) pg/mL Total Protein 7.0 (6.4-8.2) g/dL Albumin 3.4 (3.4-5.0) g/dL Theophylline 13 (10-20) ug/dL 05/19/17 05/19/17 Range/Units 07:05 11:12 WBC (4.0-10.2) K/uL RBC (4.33-5.41) M/uL Hgb (13.1-16.8) g/dL Hct (39.0-49.0) % MCV (84.0-98.0) fL MCH (28.2-33.3) pg MCHC (31.7-36.0) g/dL RDW (11.2-14.1) % Plt Count (150-350) K/uL Neut % (Auto) (45.0-80.0) % Lymph % (Auto) (10.0-50.0) % [place] % (Auto) (2.0-14.0) % Eos % (Auto) (0.0-5.0) % Baso % (Auto) (0.0-2.0) % Neut # (Auto) (1.40-7.00) K/uL Lymph # (Auto) (0.50-3.50) K/uL [place] # (Auto) (0.00-1.00) K/uL Eos # (Auto) (0.00-0.50) K/uL Baso # (Auto) (0.00-0.20) K/uL Sodium (136-145) mmol/L Potassium (3.5-5.1) mmol/L Chloride (98-107) mmol/L Carbon Dioxide (21.0-32.0) mmol/L BUN (7-18) mg/dL Creatinine (0.51-1.17) mg/dL Est Cr Clr Drug Dosing mL/min Estimated GFR (MDRD) mL/min Glucose (74-106) mg/dL POC Glucose 101 126 H (65-110) mg/dl Calcium (8.5-10.1) mg/dL Total Bilirubin (0.2-1.0) mg/dL AST (15-37) U/L ALT (12-78) U/L Alkaline Phosphatase (46-116) IU/L C-Reactive Protein (<=0.9) mg/dL NT-Pro-B Natriuret Pep (0-125) pg/mL Total Protein (6.4-8.2) g/dL Albumin (3.4-5.0) g/dL Theophylline (10-20) ug/dL Med Orders - Current: Current Medications Albuterol (Proventil Neb Soln) 2.5 mg NEB Q2H PRN PRN Reason: Wheezing Albuterol/Ipratropium (Duoneb 3.0-0.5 Mg/3 Ml) 3 ml NEB Q4HRRT PRN PRN Reason: Dyspnea Albuterol/Ipratropium (Duoneb 3.0-0.5 Mg/3 Ml) 3 ml NEB QIDRT [facility] Last Admin: 05/19/17 11:31 Dose: 3 ml Aspirin (Aspirin) 81 mg PO BEDTIME [facility] Last Admin: 05/18/17 20:27 Dose: 81 mg Azithromycin (Zithromax) 500 mg PO DAILY [facility] Last Admin: 05/19/17 07:36 Dose: 500 mg Ceftazidime (Fortaz) 1 gm IVPUSH Q12HR [facility] Last Admin: 05/19/17 07:35 Dose: 1 gm Clopidogrel Bisulfate (Plavix) 75 mg PO DAILY [facility] Last Admin: 05/19/17 07:36 Dose: 75 mg Docusate Sodium (Colace) 100 mg PO BID [facility] Last Admin: 05/19/17 07:34 Dose: 100 mg Furosemide (Lasix) 40 mg PO DAILY [facility] Last Admin: 05/19/17 07:35 Dose: 40 mg Ibuprofen (Motrin) 400 mg PO BID@08,20 PRN PRN Reason: Pain Losartan Potassium (Cozaar) 50 mg PO BID [facility] Last Admin: 05/19/17 07:35 Dose: 50 mg Metformin HCl (Glucophage) 500 mg PO DAILY [facility] Last Admin: 05/19/17 07:35 Dose: 500 mg Methylprednisolone Sodium Succinate (Solu-Medrol) 40 mg IVPUSH DAILY [facility] Last Admin: 05/19/17 07:36 Dose: 40 mg Metoprolol Tartrate (Lopressor) 50 mg PO BID [facility] Last Admin: 05/19/17 07:35 Dose: 50 mg Omeprazole (Omeprazole) 20 mg PO BEDTIME [facility] Last Admin: 05/18/17 20:27 Dose: 20 mg Psyllium Husk (Metamucil Sugar Free) 1 pkt PO BID@08,20 [facility] Last Admin: 05/19/17 07:36 Dose: 1 pkt Rosuvastatin Calcium (Crestor) 5 mg PO MoWeFr@2000 [facility] Last Admin: 05/16/17 21:39 Dose: 5 mg Sodium Chloride (Saline Flush) 10 ml FLUSH ASDIRECTED PRN PRN Reason: Keep Vein Open Sodium Chloride (Saline Flush) 10 ml FLUSH Q12HR [facility] Last Admin: 05/19/17 07:37 Dose: 10 ml Theophylline (Theophylline Anhydrous) 300 mg PO Q12HR [facility] Last Admin: 05/19/17 07:36 Dose: 300 mg Discontinued Medications Furosemide (Lasix) 40 mg IVPUSH DAILY [facility] Last Admin: 05/18/17 07:41 Dose: 40 mg Methylprednisolone Sodium Succinate (Solu-Medrol) 40 mg IVPUSH Q12HR [facility] Last Admin: 05/18/17 07:41 Dose: 40 mg Sodium Chloride (Saline Flush) 10 ml FLUSH ASDIRECTED PRN PRN Reason: Keep Vein Open *Q Meaningful Use (DIS) - VTE *Q VTE Criteria *Q: - Stroke *Q Stroke Criteria *Q: - AMI *Q AMI Criteria *Q:
== END 2017-05-19 12:40 | disposition home or self-care (01) | DRG 190 ==
LOC: LL.MS 17:39
PROVIDERS: ADMIT Family Medicine; ATTEND Family Medicine
DX: J44.0 Chronic obstructive pulmonary disease with (acute) lower respiratory infection (principal); J18.9 Pneumonia, unspecified organism; J44.1 Chronic obstructive pulmonary disease with (acute) exacerbation; R09.02 Hypoxemia; I25.10 Atherosclerotic heart disease of native coronary artery without angina pectoris; I50.9 Heart failure, unspecified; I10 Essential (primary) hypertension; E11.9 Type 2 diabetes mellitus without complications; F17.200 Nicotine dependence, unspecified, uncomplicated; Z88.8 Allergy status to other drugs, medicaments and biological substances; Z79.899 Other long term (current) drug therapy; Z95.5 Presence of coronary angioplasty implant and graft; Z95.0 Presence of cardiac pacemaker; M19.90 Unspecified osteoarthritis, unspecified site; K21.9 Gastro-esophageal reflux disease without esophagitis
CPT/HCPCS: 36415; 71046; 80053; 80198; 82962; 83880; 85025; 86140; 94640; A9270-GY; J0713; J1940; J2920; J7050

== ENCOUNTER 2020-12-22 23:10 | Emergency (ER) | payer MEDICARE, BC ==
[2020-12-22] MEDS ORDERED: Sodium Chloride 0.9% 1,000 ML IV ONE (23:47)
[2020-12-22] MEDS ORDERED: Pantoprazole 40 MG Vial ONE (23:58)
[2020-12-23] MEDS ORDERED: Pantoprazole 40 MG Vial IVPUSH ONE
--- NOTE | 2020-12-23 00:03 | EDM.PDOC ---
ED HPI GENERAL MEDICAL PROBLEM - General Chief Complaint: General Stated Complaint: rectal bleeding Time Seen by Provider: 12/22/20 23:46 Source of Information: Reports: Patient History Limitations: Reports: No Limitations - History of Present Illness INITIAL COMMENTS - FREE TEXT/NARRATIVE: Patient comes in to ER with complaint of rectal bleeding. Had 15 polyps removed yesterday at [facility]. He was told that a few were very vascular and required clips to get them to stop bleeding during the actual procedure. Patient got home around 8pm. Notes that he had his first bloody stool around 9pm. Had 3 blood stools prior to arrival to ER. Had a 4th bloody stool after arrival. Noted that he passed almost 500cc volume similar in appearance to a dark/bloody clot. Does not have any pain complaint. [place] a little light headed during last bowel movement. No other acute changes reported. Is on Plavix as well as a daily aspirin and these were not held prior to the procedure. - Related Data Allergies Allergy/AdvReac Type Severity Reaction Status Date / Time lisinopril Allergy Unknown Cough Verified 10/13/14 11:42 blueberry Allergy unknown Verified 10/13/14 11:42 gentamicin Allergy unknown Verified 10/13/14 11:42 rabeprazole sodium Allergy unknown Verified 10/13/14 11:42 [From Aciphex] raspberry Allergy unknown Verified 10/13/14 11:42 Sulfa (Sulfonamide Allergy Itching Verified 10/13/14 11:42 Antibiotics) Home Meds: Home Meds Aspirin [Carlene Chewable Aspirin] 81 mg PO BEDTIME 06/30/14 [History] Clopidogrel [Plavix] 75 mg PO DAILY 06/30/14 [History] Ibuprofen 400 mg PO BID 06/30/14 [History] Losartan Potassium [Cozaar] 50 mg PO BID 06/30/14 [History] Metoprolol Tartrate 50 mg PO BID 06/30/14 [History] metFORMIN [Glucophage] 500 mg PO DAILY 06/30/14 [History] traMADol [Ultram] 50 mg PO BID@06/30/14 [History] Omeprazole 1 cap PO DAILY 10/12/14 [History] Albuterol Sulfate [Proair Respiclick] 2 puff INH Q6HR PRN 05/12/17 [History] Beta-Carotene(A)-Vits C,E/Mins [Vision Vitamins] 2 each PO BID@08,20 05/12/17 [History] Docusate Sodium [Colace] 100 mg PO BID 05/12/17 [History] Furosemide [Lasix] 20 mg PO DAILY 05/12/17 [History] Psyllium with Sucrose [Metamucil] 1 gm PO BID 05/12/17 [History] Rosuvastatin [Crestor] 5 mg PO MOWEFR@199905/12/17 [History] traMADol [Ultram] 50 mg PO DAILY PRN 05/12/17 [History] cefproziL [Cefprozil] 500 mg PO BID #8 tablet 05/19/17 [Rx] predniSONE 20 mg PO WITHBREAKFAST #6 tab 05/19/17 [Rx] Past Medical History HEENT History: Reports: Impaired Vision Cardiovascular History: Reports: CAD, Heart Failure, Hypertension, Pacemaker Respiratory History: Reports: Pneumonia, Recurrent Gastrointestinal History: Reports: Diverticulosis, GERD Endocrine/Metabolic History: Reports: Diabetes, Type II - Past Surgical History HEENT Surgical History: Reports: Cataract Surgery Cardiovascular Surgical History: Reports: Carotid Stents, Pacer GI Surgical History: Reports: Cholecystectomy Other GI Surgeries/Procedures: recurrent abd pain Social & Family History - Family History Family Medical History: No Pertinent Family History - Tobacco Use Tobacco Use Status *Q: Former Tobacco User - Alcohol Use Alcohol Use History: No - Recreational Drug Use Recreational Drug Use: No Drug Use in Last 12 Months: No - Living Situation & Occupation Living situation: Reports: Occupation: Retired ED ROS GENERAL - Review of Systems Review Of Systems: See Below Constitutional: Reports: No Symptoms HEENT: Reports: No Symptoms Respiratory: Reports: No Symptoms Cardiovascular: Reports: Lightheadedness. Denies: Chest Pain, Syncope GI/Abdominal: Reports: Bloody Stool. Denies: Abdominal Pain, Nausea, Vomiting : Reports: No Symptoms Musculoskeletal: Reports: No Symptoms (no acute changes from baseline) Skin: Reports: No Symptoms Neurological: Denies: Confusion, Syncope, Difficulty Walking, Weakness Psychiatric: Reports: No Symptoms ED EXAM, GENERAL - Physical Exam Exam: See Below Exam Limited By: No Limitations General Appearance: Alert, WD/WN, No Apparent Distress Eye Exam: Bilateral Eye: EOMI, PERRL Ears: Hearing Grossly Normal Nose: No: Nasal Deformity, Nasal Swelling, Nasal Drainage Throat/Mouth: Normal Lips, Normal Voice, No Airway Compromise Head: Atraumatic, Normocephalic Neck: Supple Respiratory/Chest: No Respiratory Distress, Lungs Clear Cardiovascular: Regular Rate, Rhythm, No Murmur GI/Abdominal: Soft, Non-Tender, No Distention (Male) Exam: Deferred Rectal (Males) Exam: Deferred Back Exam: No: CVA Tenderness (L), CVA Tenderness (R) Extremities: Non-Tender, Normal Capillary Refill Neurological: Alert, Oriented, Normal Cognition Psychiatric: Normal Affect, Normal Mood Skin Exam: Warm, Dry, Intact, Normal Color Course - Orders/Labs/Meds Orders: Active Orders 24 hr Category Date Time Status Sodium Chloride 0.9% [Normal Saline] 1,000 ml Med 12/22/20 23:47 Ordered IV .BOLUS Medication Orders Sodium Chloride (Normal Saline) 1,000 mls @ 999 mls/hr IV .BOLUS ONE Stop: 12/23/20 00:47 Labs: Laboratory Tests 12/22/20 12/22/20 12/22/20 Range/Units 23:32 23:32 23:32 WBC 13.5 H (4.0-10.2) K/uL RBC 4.45 (4.33-5.41) M/uL Hgb 14.0 D (13.1-16.8) g/dL Hct 42.5 (39.0-49.0) % MCV 95.5 (84.0-98.0) fL MCH 31.5 (28.2-33.3) pg MCHC 32.9 (31.7-36.0) g/dL RDW 13.2 (11.2-14.1) % Plt Count 209 (150-350) K/uL Neut % (Auto) 75.4 (45.0-80.0) % Lymph % (Auto) 14.6 (10.0-50.0) % [place] % (Auto) 8.1 (2.0-14.0) % Eos % (Auto) 1.6 (0.0-5.0) % Baso % (Auto) 0.3 (0.0-2.0) % Neut # (Auto) 10.19 H (1.40-7.00) K/uL Lymph # (Auto) 1.97 (0.50-3.50) K/uL [place] # (Auto) 1.09 H (0.00-1.00) K/uL Eos # (Auto) 0.21 (0.00-0.50) K/uL Baso # (Auto) 0.04 (0.00-0.20) K/uL Sodium 139 (136-145) mmol/L Potassium 3.9 (3.5-5.1) mmol/L Chloride 105 (98-107) mmol/L Carbon Dioxide 26.4 (21.0-32.0) mmol/L Anion Gap 7.6 (7-15) meq/L BUN 19 H (7-18) mg/dL Creatinine 1.26 H (0.51-1.17) mg/dL Est Cr Clr Drug Dosing TNP Estimated GFR (MDRD) 55 mL/min Glucose 154 H (70-99) mg/dL Lactic Acid 2.8 H (0.4-2.0) mmol/L Calcium 8.5 (8.5-10.1) mg/dL Magnesium 1.9 (1.8-2.4) mg/dL Total Bilirubin 0.5 (0.2-1.0) mg/dL AST 16 (15-37) U/L ALT 14 (12-78) U/L Alkaline Phosphatase 85 (46-116) IU/L NT-Pro-B Natriuret Pep 1268 H (0-125) pg/mL Total Protein 6.9 (6.4-8.2) g/dL Albumin 3.3 L (3.4-5.0) g/dL Meds: Medications Generic Name Dose Route Start Last Admin Trade Name Freq PRN Reason Stop Dose Admin Sodium Chloride 1,000 mls @ 999 mls/hr 12/22/20 23:47 Normal Saline IV 12/23/20 00:47 .BOLUS ONE Discontinued Medications Generic Name Dose Route Start Last Admin Trade Name Freq PRN Reason Stop Dose Admin Pantoprazole Sodium Confirm 12/22/20 23:58 Pantoprazole 40 Mg Vial Administered 12/22/20 23:59 Dose 40 mg .ROUTE .STK-MED ONE Pantoprazole Sodium 40 mg 12/23/20 00:00 Pantoprazole 40 Mg Vial IVPUSH 12/23/20 00:01 ONETIME ONE - Re-Assessments/Exams Free Text/Narrative Re-Assessment/Exam: 10/30/21 00:15 As noted in HPI, patient passed almost 500cc per rectum of dark clotted bloody matter shortly after arrival. IV established. One liter NS ordered. Labs drawn. Vital signs stable. BP 92/57. Patient reported to us that his usual blood pressure is around 100 systolic. Heart rate upper 60s. Patient says that he has a paced heart rate. O2 sats upper 80s-91% room air. Former smoker. Respiratory rate 18-20. Protonix ordered. Call placed to [facility] while labs pending and he was accepted for transfer by /Hospitalist. Hgb 14 but given the acuteness of the blood volume loss it would not yet be reflected in patient's current lab level. WBC mildly elevated at 13.5 Cr 1.26 Lactic 2.8 ProBNP 1268 EMS contacted for patient's transport to [facility]. Given that patient appeared to be stable it was determined that best option would be to send straight to [facility] ER. Blood transfusion will be considered by /ER staff once he arrives and is reassessed to see if needed. Surgery will be available at [facility] if bleeding persists and surgical intervention is needed. Patient agreeable with plan. Departure - Departure Time of Disposition: 00:02 Disposition: DC/Tfer to Acute Hospital 02 Condition: Good Clinical Impression: Post-polypectomy bleeding - Discharge Information *PRESCRIPTION DRUG MONITORING PROGRAM REVIEWED*: Not Applicable *COPY OF PRESCRIPTION DRUG MONITORING REPORT IN PATIENT DORA: Not Applicable Referrals: Sunita Lynch NP [Primary Care Provider] - - My Orders Last 24 Hours: My Active Orders 12/22/20 23:47 Sodium Chloride 0.9% [Normal Saline] 1,000 ml IV .BOLUS - Assessment/Plan Last 24 Hours: My Active Orders 12/22/20 23:47 Sodium Chloride 0.9% [Normal Saline] 1,000 ml IV .BOLUS
[2020-12-23 00:09] LABS: ANION GAP 7.6 meq/L (7-15); CHLORIDE,CL 105 mmol/L (98-107); SODIUM,NA 139 mmol/L (136-145)
== END 2020-12-23 00:20 ==
LOC: LL.ED 23:10
DX: K91.840 Postprocedural hemorrhage of a digestive system organ or structure following a digestive system procedure (principal); I25.10 Atherosclerotic heart disease of native coronary artery without angina pectoris; I11.0 Hypertensive heart disease with heart failure; I50.9 Heart failure, unspecified; Z91.048 Other nonmedicinal substance allergy status; Z88.8 Allergy status to other drugs, medicaments and biological substances; Z88.1 Allergy status to other antibiotic agents; Z88.2 Allergy status to sulfonamides; Z79.82 Long term (current) use of aspirin; Z79.02 Long term (current) use of antithrombotics/antiplatelets; Z79.899 Other long term (current) drug therapy; Z87.891 Personal history of nicotine dependence
CPT/HCPCS: 36415; 80053; 83605; 83735; 83880; 85025; 96374; 99284-25; C9113; J7030

== ENCOUNTER 2021-05-18 11:00 | Observation (INO) | payer MEDICARE, BC ==
[2021-05-18] MEDS ORDERED: methylPREDNISolone Sodium Succinate 125 MG/2 ML SDV IVPUSH ONE (11:38)
[2021-05-18 12:19] LABS: ANION GAP 7.7 meq/L (7-15)
[2021-05-18] MEDS: Sodium Chloride 0.9% 10 ML Syringe FLUSH PRN ×2 (12:38→15:54)
[2021-05-18] MEDS: Sodium Chloride 0.9% 1,000 ML IV SCH (15:49)
[2021-05-18] MEDS: Azithromycin 500 MG in Sodium Chloride 0.9% 250 ML IV SCH (15:49)
[2021-05-18] MEDS: Albuterol/Ipratropium 3.0-0.5 MG/3 ML Neb Soln NEB SCH ×2 (16:01→20:41)
[2021-05-18] MEDS: Docusate Sodium 100 MG Cap PO SCH (19:06)
[2021-05-18] MEDS: Lutein/Minerals/Vitamin C/Vitamin E Acetate Cap PO SCH (19:06)
[2021-05-18] MEDS: Losartan 50 MG Tab PO SCH (19:06)
[2021-05-18] MEDS: Psyllium Husk Powder Sugar Free 5.85 GM Packet PO SCH (19:06)
[2021-05-18] MEDS: Oseltamivir 75 MG Cap PO SCH (19:06)
[2021-05-18] MEDS: Metoprolol Tartrate 50 MG Tab PO SCH (19:06)
[2021-05-18] MEDS: Acetaminophen 500 MG Tab PO SCH (20:42)
[2021-05-18] MEDS: Aspirin 81 MG Tab.Chew PO SCH (20:42)
[2021-05-19] MEDS: Albuterol/Ipratropium 3.0-0.5 MG/3 ML Neb Soln NEB SCH ×7 (00:42→23:12)
[2021-05-19] MEDS: Sodium Chloride 0.9% 1,000 ML IV SCH (04:21)
[2021-05-19] MEDS: metFORMIN 500 MG Tab PO SCH (07:59)
[2021-05-19] MEDS: Lutein/Minerals/Vitamin C/Vitamin E Acetate Cap PO SCH ×2 (07:59→17:12)
[2021-05-19] MEDS: Furosemide 20 MG Tab PO SCH (07:59)
[2021-05-19] MEDS ORDERED: methylPREDNISolone Sodium Succinate 125 MG/2 ML SDV IVPUSH ONE (08:00)
[2021-05-19] MEDS: Metoprolol Tartrate 50 MG Tab PO SCH ×2 (08:01→17:14)
[2021-05-19] MEDS: Losartan 50 MG Tab PO SCH ×2 (08:01→17:13)
[2021-05-19] MEDS: Omeprazole 20 MG Cap.CR PO SCH (08:06)
[2021-05-19] MEDS: Oseltamivir 75 MG Cap PO SCH ×2 (08:07→17:12)
[2021-05-19] MEDS: traMADol 50 MG Tab PO SCH (08:07)
[2021-05-19] MEDS: Docusate Sodium 100 MG Cap PO SCH ×2 (08:08→17:11)
[2021-05-19] MEDS: Psyllium Husk Powder Sugar Free 5.85 GM Packet PO SCH ×2 (08:10→17:13)
[2021-05-19 08:44] LABS: ANION GAP 6.5 meq/L (7-15)
[2021-05-19] MEDS: Azithromycin 500 MG in Sodium Chloride 0.9% 250 ML IV SCH (14:21)
[2021-05-19] MEDS: Acetaminophen 500 MG Tab PO SCH (20:11)
[2021-05-19] MEDS: Aspirin 81 MG Tab.Chew PO SCH (20:11)
[2021-05-20] MEDS: Albuterol/Ipratropium 3.0-0.5 MG/3 ML Neb Soln NEB SCH ×6 (04:36→23:38)
[2021-05-20] MEDS ORDERED: methylPREDNISolone Sodium Succinate 125 MG/2 ML SDV IVPUSH ONE (07:00)
[2021-05-20] MEDS: Furosemide 20 MG Tab PO SCH (07:35)
[2021-05-20] MEDS: metFORMIN 500 MG Tab PO SCH (07:35)
[2021-05-20] MEDS: Oseltamivir 75 MG Cap PO SCH ×2 (07:35→17:34)
[2021-05-20] MEDS: Docusate Sodium 100 MG Cap PO SCH ×2 (07:35→17:33)
[2021-05-20] MEDS: Psyllium Husk Powder Sugar Free 5.85 GM Packet PO SCH ×2 (07:35→17:34)
[2021-05-20] MEDS: Lutein/Minerals/Vitamin C/Vitamin E Acetate Cap PO SCH ×2 (07:35→17:34)
[2021-05-20] MEDS: Metoprolol Tartrate 50 MG Tab PO SCH ×2 (07:36→17:36)
[2021-05-20] MEDS: Omeprazole 20 MG Cap.CR PO SCH (07:36)
[2021-05-20] MEDS: traMADol 50 MG Tab PO SCH (07:36)
[2021-05-20] MEDS: Losartan 50 MG Tab PO SCH ×2 (07:36→17:35)
[2021-05-20 08:22] LABS: ANION GAP 4.7 meq/L (7-15)
[2021-05-20] MEDS ORDERED: Sodium Chloride 0.9% 500 ML IV SCH (12:00)
[2021-05-20] MEDS ORDERED: Iopamidol 755 Mg/ML 100 ML Bottle IVPUSH ONE ×2 (12:12→12:18)
[2021-05-20] MEDS ORDERED: Enoxaparin 40 MG/0.4 ML Syringe SUBCUT ONE (14:22)
[2021-05-20] MEDS ORDERED: Furosemide 20 MG/2 ML VIAL IVPUSH ONE (14:24)
[2021-05-20] MEDS ORDERED: Enoxaparin 30 MG/0.3 ML Syringe SUBCUT SCH (14:30)
[2021-05-20] MEDS: Azithromycin 500 MG in Sodium Chloride 0.9% 250 ML IV SCH (15:46)
[2021-05-20] MEDS: Aspirin 81 MG Tab.Chew PO SCH (19:35)
[2021-05-20] MEDS: Acetaminophen 500 MG Tab PO SCH (19:35)
[2021-05-21] MEDS: Albuterol/Ipratropium 3.0-0.5 MG/3 ML Neb Soln NEB SCH ×3 (03:40→12:25)
[2021-05-21] MEDS ORDERED: methylPREDNISolone Sodium Succinate 125 MG/2 ML SDV IVPUSH ONE (08:00)
[2021-05-21 08:08] LABS: ANION GAP 10.5 meq/L (7-15)
[2021-05-21] MEDS: Lutein/Minerals/Vitamin C/Vitamin E Acetate Cap PO SCH (08:18)
[2021-05-21] MEDS: Metoprolol Tartrate 50 MG Tab PO SCH (08:18)
[2021-05-21] MEDS: Docusate Sodium 100 MG Cap PO SCH (08:18)
[2021-05-21] MEDS: Furosemide 20 MG Tab PO SCH (08:19)
[2021-05-21] MEDS: traMADol 50 MG Tab PO SCH (08:19)
[2021-05-21] MEDS: Omeprazole 20 MG Cap.CR PO SCH (08:19)
[2021-05-21] MEDS: Losartan 50 MG Tab PO SCH (08:20)
[2021-05-21] MEDS: Psyllium Husk Powder Sugar Free 5.85 GM Packet PO SCH (08:21)
[2021-05-21 12:25] VITALS: BP 130/81; PULSE 62
[2021-05-21] MEDS ORDERED: Enoxaparin 40 MG/0.4 ML Syringe SUBCUT SCH (15:00)
== END 2021-05-21 14:20 | disposition home or self-care (01) ==
LOC: LL.ED 11:00 → UNDOADMIN 13:17 → INTOOBSV 13:17 → LL.MS 13:17
PROVIDERS: ADMIT Emergency Medicine; ATTEND Emergency Medicine
DX: J44.1 Chronic obstructive pulmonary disease with (acute) exacerbation (principal); J10.1 Influenza due to other identified influenza virus with other respiratory manifestations; R09.02 Hypoxemia; I25.10 Atherosclerotic heart disease of native coronary artery without angina pectoris; I50.9 Heart failure, unspecified; E11.22 Type 2 diabetes mellitus with diabetic chronic kidney disease; N18.9 Chronic kidney disease, unspecified; I13.0 Hypertensive heart and chronic kidney disease with heart failure and stage 1 through stage 4 chronic kidney disease, or unspecified chronic kidney disease; Z88.8 Allergy status to other drugs, medicaments and biological substances; Z88.2 Allergy status to sulfonamides; Z79.82 Long term (current) use of aspirin; Z79.899 Other long term (current) drug therapy; Z95.0 Presence of cardiac pacemaker; Z79.84 Long term (current) use of oral hypoglycemic drugs; Z98.890 Other specified postprocedural states; Z90.49 Acquired absence of other specified parts of digestive tract
CPT/HCPCS: 36415; 71046; 71275; 80048; 80053; 81003; 82947; 83605; 83735; 83880; 85025; 85379; 93005; 93010; 94640; 94761; 96365; 96366; 96372; 96374; 96375; 96376; 97166-GO; 99217; 99220; 99225; 99285-25; A9270-GY; G0378; J0456; J1650; J1940; J2930; J3490; J7030; J7040; J7050; J7620-GY; Q9967